=== PATIENT | female | born 1965 | race Caucasian/White ===

== ENCOUNTER 2018-05-30 14:40 | Emergency (ER) | payer OTHER, SELFPAY ==
[2018-05-30 14:51] VITALS: PULSE 72; RESP 18; TEMP 36.7; O2SAT 95; BMI 45.8
--- NOTE | 2018-05-30 16:15 | ED_ITS ---
HPI - Wound/Laceration General Chief Complaint: Wound/Laceration Stated Complaint: laceration to thumb left hand Time Seen by Provider: 05/30/18 15:53 Source: patient Mode of arrival: ambulatory Limitations: no limitations History of Present Illness HPI narrative: 52-year-old female comes to the emergency department after accidentally cutting her thumb with an Exacto knife. She was trying to pull apart a small would drawer. Patient states it popped off and cut her thumb. She tried to get the bleeding to stop but it gaps every time she flexes her thumb. She states her tetanus is up-to-date. No numbness, no tingling no weakness. She has no other injuries. She denies any other issues at this time. Related Data Home Medications Medication Instructions Recorded Confirmed albiglutide [Tanzeum] 50 mg SC QWEEK #0 12/31/15 atorvastatin [Lipitor] 20 mg PO BEDTIME #30 tab 12/31/15 05/30/18 ferrous fumarate #0 12/31/15 insulin glargine [Lantus Solostar 0 unit SQ HS #60 12/31/15 05/30/18 U-100 Insulin] levothyroxine [Synthroid] 125 mcg PO DAILY #0 tab 12/31/15 05/30/18 metformin [Glucophage] 500 mg PO BIDCC #0 tab 12/31/15 05/30/18 omeprazole-sodium bicarbonate 1 cap PO EVERY OTHER DAY #0 12/31/15 [Zegerid OTC] sertraline [Zoloft] 100 mg PO QDAY #2 12/31/15 [CRANBERRY VITAMIN] #0 02/12/16 lutein #0 02/12/16 albuterol sulfate [Ventolin HFA] 1 puff INHALATION Q4-6H PRN 05/30/18 05/30/18 dulaglutide [Trulicity] 1.5 mg SUBCUT Q2W 05/30/18 05/30/18 metoprolol tartrate 25 mg PO BID 05/30/18 05/30/18 Previous Rx's Medication Instructions Recorded acetaminophen-codeine 1 tab PO Q4HP PRN #20 tab 02/12/16 Allergies Allergy/AdvReac Type Severity Reaction Status Date / Time adhesive tape [ADHESIVE TAPE] Allergy Unknown BLISTERS Verified 05/30/18 14:55 AND PEELING simvastatin [SIMVASTATIN] AdvReac Unknown MUSCLE Verified 05/30/18 14:55 CRAMPS Review of Systems Review of Systems ROS Unobtainable: All systems reviewed & are unremarkable except as noted in HPI and below Musculoskeletal Denies numbness, Denies tingling and Reports other (laceration thumb. ) Integumentary/Breasts Denies unusual bruising and Reports wounds (laceration) Neurologic Denies numbness and Denies tingling PFSH Social History Smoking Status: Former smoker Exam Narrative Exam Narrative: GENERAL: Alert and oriented x three, obese, well-appearing well nourished female in mild distress. HEENT: Head normocephalic, atraumatic, EOMI, pupils reactive, face symmetric, moist mucous membranes EXTREMITIES: Normal range of motion, no clubbing or edema. Patient has cap refill less than 2 sec in the thumb, full range of motion, no weakness, patient has 2+ radial pulse. She has no other injuries to the other digits or hand. Patient does have 2 lacerations 1 is deeper no tendon or ligament involvement on the ulnar side of the thumb between the proximal and middle interphalangeal joints. It is into the subcutaneous. It gaps with flexion. There is a very small superficial laceration parallel and divided by about a cm distance. Neurovascularly intact NEUROLOGICAL: Cranial nerves II through XII grossly intact. Moving all extremities SKIN: Warm, dry, no petechiae, no rashes or lesions. Initial Vital Signs Initial Vital Signs: Vital Signs Temperature 98.0 F 05/30/18 14:51 Pulse Rate 72 05/30/18 14:51 Respiratory Rate 18 05/30/18 14:51 Pulse Oximetry 95 05/30/18 14:51 Procedures Laceration Repair Laceration 1: Side (If applicable): left (thumb) Size (cm): 1.1 Description: linear Depth: simple, single layer Local Anesthetic: lidocaine 1% Amount of anesthesia used (mL): 0.5 Pre-repair: wound explored, irrigated extensively and deep structures intact Skin layer closed with: nylon Size (cm): 4-0 Number of sutures: 1 Technique: simple, interrupted Course Vital Signs - 8 hr 05/30/18 14:51 05/30/18 16:23 Temperature 98.0 F Pulse Rate 72 71 Respiratory Rate 18 19 Blood Pressure [Left Arm] 119/70 Pulse Oximetry 95 93 MDM - Wound/Laceration MDM Narrative Medical decision making narrative: Patient I discuss she can have a splint to remind her not to flex the thumb although she does not seem to gape when flexing. Patient defers at this time she feels she can remember know if not 2. She denies for wrist splint because she wants to play basketball we discussed that a wrist splint is not going to protect her thumb, she should play basketball with that hand until the sutures out. That she can have a splint on her thumb if she wants it. Discharge Plan Departure Patient Disposition: Home Clinical Impression: Laceration of left thumb Discharge Date/Time: 05/30/18 16:39 Interventions: ED Discharge Assessment Last Done: 05/30/18 16:37 Instructions: DI for Laceration Repair -- Finger Activity Restrictions/Additional Instructions: Wound Care: Keep wound(s) clean and dry. Wash daily with soap and water only. Do not use over the counter products (alcohol or peroxide)on the wounds unless instructed by a physician. If wound condition worsens (increased/expanding redness, developing fluid blisters, or worsening pain), either contact your doctor for an urgent re- assessment , or return to the Emergency Department. Return to the Emergency Department for any new or worsening symptoms. Return to the ED, urgent care, or vist a primary care doctor for removal or suture or dali in 7-10 days. Return if fever greater than 100.4 Fahrenheit, increased swelling, increasing pain or worsening symptoms such as increased discharge or spreading redness, decreased sensation, weakness, pallor or blue discolaration. Use warm compresses 3 times daily for 20 minutes to the affected area. Prescriptions: No Action atorvastatin [Lipitor] 20 MG tablet 20 mg PO BEDTIME Qty: 30 RF: 0 ferrous fumarate 324 MG tablet Qty: 0 RF: 0 levothyroxine [Synthroid] 125 MCG tablet 125 mcg PO DAILY Qty: 0 RF: 0 insulin glargine [Lantus Solostar U-100 Insulin] 100 UNIT/1 ML insulin pen SQ HS Qty: 60 RF: 0 metformin [Glucophage] 500 MG tablet 500 mg PO BIDCC Qty: 0 RF: 0 sertraline [Zoloft] 100 MG tablet 100 mg PO QDAY Qty: 2 RF: 0 albiglutide [Tanzeum] 50 MG/0.5 ML pen injector 50 mg SC QWEEK Qty: 0 RF: 0 omeprazole-sodium bicarbonate [Zegerid OTC] 20 MG capsule 1 cap PO EVERY OTHER DAY Qty: 0 RF: 0 [CRANBERRY VITAMIN] Qty: 0 RF: 0 lutein 10 MG tablet Qty: 0 RF: 0 acetaminophen-codeine 30 MG/300 MG tablet 1 tab PO Q4HP PRNQty: 20 RF: 0 albuterol sulfate [Ventolin HFA] 90 mcg/actuation Hfa Aerosol Inhaler 1 puff INHALATION Q4-6H PRN (Reason: Shortness Of Breath) RF: 0 metoprolol tartrate 25 mg Tablet 25 mg PO BID RF: 0 dulaglutide [Trulicity] 1.5 mg/0.5 mL Pen Injector 1.5 mg SUBCUT Q2W RF: 0 Referrals: Samreen Ray DO [Primary Care Provider] -
[2018-05-30 16:23] VITALS: BP 119/70; PULSE 71; RESP 19; O2SAT 93
== END 2018-05-30 16:39 | disposition home or self-care (01) ==
PROVIDERS: Emergency Provider Emergency Medicine; Family Provider Family Medicine; PCP Family Medicine
DX: S61.012A Laceration without foreign body of left thumb without damage to nail, initial encounter (principal); W26.8XXA Contact with other sharp object(s), not elsewhere classified, initial encounter
CPT/HCPCS: 12001; 99282; 99283

== ENCOUNTER → 2019-06-19 12:10 | Outpatient (CLI) | payer OTHER, SELFPAY ==
--- NOTE | 2019-06-22 04:39 | DI.NM.S_ITS ---
DATE OF SERVICE: PROCEDURE: Pharmacological perfusion study for patient. DATE OF STUDY: 06/19/2019. INDICATIONS: Indication chest pain with underlying diabetes mellitus, hypertension, hyperlipidemia. RADIOPHARMACEUTICAL: 25.9 millicurie technetium-99m Myoview intravenous was injected at stress and 25.3 millicurie technetium-99m Myoview intravenous was injected at rest. CARDIAC STRESS: The patient underwent intravenous Lexiscan perfusion study under the supervision of an attending staff using standard intravenous Lexiscan protocol. Baseline EKG revealed sinus rhythm with left bundle branch block. Stress EKG did not reveal any convincing inducible ischemic changes. The patient remained hemodynamically stable. No significant symptoms were reported. RAW DATA: There is increased subdiaphragmatic activity. GATED STUDY: Resting LV ejection fraction 81%, stress LV ejection fraction 79%. Resting end-diastolic volume 107 mL. No transient ischemic dilatation. TID ratio 0.93, which is within normal limits. Lung heart ratio 0.45, which is upper limit of normal. MYOCARDIAL PERFUSION SCAN: Resting supine images reveal small size mildly decreased perfusion of inferior apex which got resolved during stress supine as well as stress prone images. No convincing ischemia or infarction pattern. CONCLUSION: I will call this study a normal myocardial perfusion study without any convincing ischemia or infarction pattern during stress supine and stress prone images. The patient has underlying left bundle branch block. Overall this is a low risk myocardial perfusion scan. Deanna Molina - ELIF/jose/weston doc#: [id number]/job#: [id number] dd: 06/21/2019 17:12:00 dt: 06/22/2019 04:25:00 DICTATING /COPIES TO: Shandra Pagan MD COPIES MNE: LIANA;
== END ==
PROVIDERS: Family Provider Family Medicine; PCP Family Medicine; Referring Provider Family Medicine; Visit Provider Family Medicine
DX: R07.9 Chest pain, unspecified (principal); I44.7 Left bundle-branch block, unspecified; E78.5 Hyperlipidemia, unspecified; I10 Essential (primary) hypertension; E11.65 Type 2 diabetes mellitus with hyperglycemia
CPT/HCPCS: 78452; 93017; A9502; J2785

== ENCOUNTER → 2019-10-26 12:33 | Outpatient (CLI) | payer OTHER, SELFPAY ==
--- NOTE | 2019-10-26 14:51 | DIET.PN ---
Diabetes Intake: Initial Assessment Assess: Ms. Molina is a 54 YOF referred for type 2 diabetes. She has a long standing hx with poor control. She reports having some education several years ago, but she does not feel she had a good understanding of how to manage her eating and medication. She admits she has not followed her medication regimen until recently. She has been unable to exercise due to cardiac restrictions, and has not been following any dietary patterns or restrictions. She reports eating many processed foods including spaghettios, corndogs, chips, and fast food several times per week and has a high carb starbucks coffee drinks almost daily. She has been monitoring her BG 1x/wk. Labs: Per pt report: A1c 9.3 Meds: humulin 70/30: 68 u a.m./p.m. metf: 500 mg BID trulicity 1x/wk Diet: per 24 hr recall: high in processed or fast foods. Wt: 315# Ht: 67? BMI: 49.3 DX: Altered nutrition related laboratory values related to impaired glucose metabolism, lack of previous exposure to nutrition information as evidenced by pt report, diagnosis of diabetes, previous diet high in refined carbohydrates. Intervention: 1. Completed intake assessment. Discussed barriers to care. 2. Discussed pathophysiology of diabetes. Reviewed A1c and its correlation to blood glucose numbers. Discussed recommended BG ranges. 3. Discussed importance of self-monitoring, how often, and when to check. Provided demonstration on use of glucometer. 4. Reviewed hyper/hypoglycemia and treatment. 5. Reviewed safe disposal of equipment (strip/lancets/insulin needles). 6. Created SMART goals for pt self-care and success. 7. Discussed program curriculum outline and class needs based on individual goals. SMART Goals: 1. Pt would like to lose 15# (5% BW) in the next 3 mo through changes in dietary patterns, learning carb counting, and beginning an exercise program 3x/wk. 2. Pt agrees to monitor FBG and alternating 2 hr PP glucose and keep a food diary to address pattern management. Monitor/Evaluate: Anticipate good compliance. Pt will attend full DSME program. Basic Nutrition class scheduled for October,.
== END ==
PROVIDERS: Family Provider Family Medicine; PCP Family Medicine; Referring Provider Family Medicine; Visit Provider Family Medicine
DX: E11.65 Type 2 diabetes mellitus with hyperglycemia (principal); E66.9 Obesity, unspecified; Z68.42 Body mass index [BMI] 45.0-49.9, adult; Z71.3 Dietary counseling and surveillance; Z79.4 Long term (current) use of insulin; Z79.84 Long term (current) use of oral hypoglycemic drugs
CPT/HCPCS: G0108

== ENCOUNTER → 2019-10-31 09:25 | Outpatient (CLI) | payer OTHER, SELFPAY ==
--- NOTE | 2019-10-31 11:49 | DIET.PN ---
Diabetes: Healthy Eating 1 Intervention: ? Discussed pathophysiology of diabetes and impact of nutrition/diet on blood sugar control.? Discussed fed versus non-fed state.?? ? Reviewed importance of Balance, Variety, and Moderation. ? Discussed the effect of carbohydrates/protein/fat on blood sugar control.? ? Stressed importance of consistent carbohydrate intake at each meal and provided instructions for recommended servings/portions of carbohydrates/protein per meal. Provided educational material. ? Reviewed carbohydrate counting and measuring carbohydrate content via serving sizes and reading nutrition labels.? Provided handouts.?? ? Discussed the difference between simple versus complex carbohydrates and the effect of fiber on blood sugar control.? Discussed various methods to increase fiber content in diet. ? Discussed the plate method for creating more carbohydrate conscious balanced meals. ? Stressed importance of meal timing and not going >4-5 hours between meals. Encouraged adding protein to evening snack to support glucose control overnight. ? Discussed importance of making dietary habits part of lifestyle change.
== END ==
PROVIDERS: Family Provider Family Medicine; PCP Family Medicine; Referring Provider Family Medicine; Visit Provider Family Medicine
DX: E11.9 Type 2 diabetes mellitus without complications (principal); Z71.3 Dietary counseling and surveillance
CPT/HCPCS: G0109

== ENCOUNTER → 2019-11-01 12:40 | Outpatient (CLI) | payer OTHER, SELFPAY ==
--- NOTE | 2019-11-01 | DI.ECHO.S_ITS ---
[facility]---------+ [facility] +---------+ : : [address] : [place] : : : : [id number] : : : : Phone: [phone]+ Echocardiogram Report + + :Name: CRISTY SEGAL Study Date: 11/01/2019 Height: 67 in : :[facility] Weight: 299 lb : : Gender: Female BSA: 2.4 m2 : :: 1965 Age: 54 yrs BP: 162/78 mmHg: :Reason For Study: DYSPNEA : :Ordering Physician: BARRIE, : :THOMAS Connelly Performed By: Idalia Hilton : :Referring: THOMAS SOOD : + + Interpretation Summary The left ventricle is normal in size. Left ventricular wall thickness is mild-moderately increased. The left ventricle is mildly hyperdynamic. Left ventricular ejection fraction is estimated to be 70 +/- 5%. Doppler profile in the LV cavity and near the apex has dagger shaped, suggestive of some gradient however based on velocity, no significant intracavitary obstruction seen. The right ventricle is normal in size and function. No significant valvular pathology seen. Procedure: A two-dimensional transthoracic echocardiogram with color flow and Doppler was performed. The study quality was technically difficult. Comparison is made with the echocardiogram of 08/16/2018. The patient was in normal sinus rhythm during the exam. The heart rate ranged between 60-70 bpm during the study. The patient had occasional PVCs during the exam. The patient had a bundle branch block rhythm during the exam. Left Ventricle: The left ventricle is normal in size. Left ventricular wall thickness is mild-moderately increased. Doppler profile in the LV cavity near the apex has dagger shaped suggestive of some gradient however based on velocity, no significant intracavitary obstruction seen. There is no thrombus. Left ventricular ejection fraction is estimated to be 70 +/- 5%. The left ventricle is mildly hyperdynamic. There are no focal wall motion abnormalities. Diastolic parameters suggest a relaxation abnormality of the left ventricle, consistent with probable normal filling pressures. Right Ventricle: The right ventricle is normal in size and function. Atria: The left atrium is mildly dilated. Right atrial size is normal. There is no Doppler evidence for an interatrial shunt. Mitral Valve: There is mild mitral annular calcification. There is trace mitral regurgitation. Aortic Valve: The aortic valve is trileaflet. The aortic valve opens well. The aortic valve is mildly calcified. There is discrete nodular thickening of the non- coronary cusp. There is no aortic valve stenosis. No aortic regurgitation is present. Tricuspid Valve: The tricuspid valve is not well visualized, but is grossly normal. There is a trace or physiologic amount of tricuspid regurgitation. Pulmonary artery pressures cannot be estimated because of the lack of a measurable TR jet velocity. Pulmonic Valve: The pulmonic valve is not well seen, but is grossly normal. There is no pulmonic valvular regurgitation. Great Vessels: The aortic root is normal size. The ascending aorta is at the upper limits of normal in size. The inferior vena cava was not visualized. Pericardium/ Pleura There is no pericardial effusion. There is an anterior echo-free space consistent with a fat pad. There is no pleural effusion. MMode/2D Measurements & Calculations LVIDd: 4.5 cm LVOT diam: 2.2 cm LVIDs: 2.6 cm Ao root diam: 2.8 cm FS: 42.9 % asc Aorta Diam: 3.7 cm EPSS: 0.65 cm Ao Arch Diam (Prox Trans): 3.1 cm IVSd: 1.4 cm LVPWd: 1.3 cm LV bro. diameter/BSA (cm/m^2): 1.9 LV sys. diameter/BSA (cm/m^2): 1.1 LA A2 area: 22.0 cm2 RA long axis: 5.1 cm LA A4 area: 18.8 cm2 RA area: 16.0 cm2 LA length (vol): 5.3 cm RA vol: 43.1 ml LA vol: 66.1 ml RA : 18.0 ml/m2 LA vol index: 27.6 ml/m2 RVD1 (basal): 3.9 cm TAPSE: 1.9 cm Doppler Measurements & Calculations Ao V2 max: 182.2 cm/sec LVOT Max Kirk: 143.4 cm/sec Ao V2 mean: 122.2 cm/sec LV V1 max P.2 mmHg Ao max P.3 mmHg LV V1 VTI: 25.1 cm Ao mean P.9 mmHg PEPE(I,D): 2.9 cm2 Ao V2 VTI: 32.8 cm PEPE(V,D): 3.0 cm2 sev ratio: 0.77 PEPE indexed to BSA (cm^2/m^2): 1.2 MV E max kirk: 89.8 cm/sec PA V2 max: 106.4 cm/sec MV A max kirk: 103.1 cm/sec PA V2 mean: 73.0 cm/sec MV E/A: 0.87 PA mean P.5 mmHg Med Peak E' Kirk: 9.3 cm/sec E/E' med: 9.6 Lat Peak E' Kirk: 7.7 cm/sec E/E' lat: 11.7 E/e' average: 10.6 MV dec time: 0.31 sec SV(LVOT): 95.3 ml Reading Physician:02:28 PM
--- NOTE | 2019-11-01 | DI.CT.S_ITS ---
PROCEDURE: CT CHEST W CON INDICATIONS: EXTERTIONAL DYSPNEA,Other disorders of lung TECHNIQUE: After the administration of intravenous contrast, 5 mm thick sections acquired from the pulmonary apices to the posterior costophrenic angles. 1 mm axial lung, 5 mm thick coronal and sagittal reformats and 7 mm axial MIP were acquired. For radiation dose reduction, the following was used: automated exposure control, adjustment of mA and/or kV according to patient size. COMPARISON: [facility], CT, ABDOMEN/PELVIS WITH CONTRAST, 03/26/2016, 14:30. FINDINGS: Image quality: Excellent. Lungs and pleura: No acute air space opacities. Right middle lobe pulmonary nodule measuring 5 mm (3/144). Right middle lobe juxtapleural pulmonary nodule measuring 6 mm, (3/152), previously 5 mm on 03/26/2016. No pleural effusions or pneumothorax. Central and peripheral airways are patent and normal in caliber. Mediastinum: Heart size is normal. No pericardial effusion. No mediastinal or hilar adenopathy by size criteria. Thoracic aorta and central pulmonary arteries are normal in size. No central pulmonary embolism. Esophagus is normal in caliber. No hiatal hernia. Bones and chest wall: No suspicious bony lesions. No vertebral body compression fractures. No axillary or supraclavicular adenopathy by size criteria. Thyroid gland is unremarkable. Visualized abdomen: Hepatic steatosis. IMPRESSION: 1. No acute airspace opacity. 2. No pleural effusion. 3. Small pulmonary nodules in the right middle lobe, largest 6 mm and appears similar in size to 2016 CT suggesting a benign etiology. -Consider a followup low dose chest CT in 12 months. 4. Hepatic steatosis. Dictated by: Ravi Heaton M.D. on 11/01/2019 at 13:59 Approved by: Ravi Heaton M.D. on 11/01/2019 at 14:07
== END ==
PROVIDERS: Family Provider Family Medicine; PCP Family Medicine; Referring Provider Family Medicine; Visit Provider Family Medicine
DX: J98.4 Other disorders of lung (principal); R06.09 Other forms of dyspnea; R91.8 Other nonspecific abnormal finding of lung field; K76.0 Fatty (change of) liver, not elsewhere classified
CPT/HCPCS: 71260; 93306

== ENCOUNTER → 2019-11-09 09:47 | Outpatient (CLI) | payer OTHER, SELFPAY ==
--- NOTE | 2019-11-09 12:21 | DIET.PN ---
Diabetes: Healthy Eating 2 Intervention: Fats effects on glucose, weight, heart disease, cholesterol Sat Vs Unsat Protein- animal and plant based options Low, med, high fat meats Sugar substitutes Sodium Health claims Grocery shopping guidelines Eating away from home Alcohol Sick day guidelines Ketone Testing
== END ==
PROVIDERS: Family Provider Family Medicine; PCP Family Medicine; Referring Provider Family Medicine; Visit Provider Family Medicine
DX: E11.9 Type 2 diabetes mellitus without complications (principal); Z71.3 Dietary counseling and surveillance
CPT/HCPCS: G0109

== ENCOUNTER → 2020-01-24 10:00 | Outpatient (CLI) | payer OTHER, SELFPAY ==
--- NOTE | 2020-01-24 11:24 | DIET.PN ---
DIABETES Nutrition Initial Assessment:? ASSESS:?? Ms Molina is a 54 yof?referred for type 2 diabetes seen as part of DSME program. She reports she has been really stressed lately with the care of her family and all that is going on. She has managed to eat less carbs at each meal by portion control and is working to increase vegetables with salad or frozen. She is purchasing pre-cut fruit to snack on between meals. She continues to eat treats at night, but has been trying different options including keto friendly icecream and smaller portioned packaged items. She is working on limiting processed and fast foods by cooking larger portions to have leftovers during the week. ??? LABS: Per pt report:? A1c: 9.3 Fasting or before evening meal: 190-250 ? MEDS:?? no change ? DIET: Per 24-hour recall:? Eating Out: 2-3x/wk Changes in Appetite: trying not to overeat due to stress Nutrition Supplements: Vit B Complex, Vit D, Vit C, Iron ? Weight: 304 lb Height: 67? BMI: ? 47.6 ? Exercise:? Not consistent (working to increase to 3x/wk) NUTRITION DX 1. Altered Nutrition related labs related to impaired glucose metabolism, lack of previous exposure to accurate nutrition information as evidenced by pt report, dx of diabetes, previous diet high in refined carbohydrates.? INTERVENTION(s): 1. Reviewed pathophysiology of diabetes and impact of nutrition/diet on blood sugar control.? Discussed fed versus non-fed state.?? 2. Discussed the effect of carbohydrates/protein/fat on blood sugar control.? Stressed importance of consistent carbohydrate intake at each meal and provided instructions for recommended servings/portions of carbohydrates/protein per meal. Provided pt with educational material. 3. Reviewed carbohydrate counting and measuring carbohydrate content via serving sizes and reading nutrition labels.? Provided handouts.?? 4. Discussed the difference between simple versus complex carbohydrates and the effect of fiber on blood sugar control.? Discussed various methods to increase fiber content in diet. 5. Stressed importance of meal timing and not going >4-5 hours between meals. Encouraged adding protein to evening snack to support glucose control overnight. Patient agreeable. 6. Discussed healthy weight loss goals of 1-2lbs per week through diet and exercise.? Pt agreeable to walking at least 20 minutes 3x/wk. 7. Recommend monitoring fasting and alternating 2 hr PP mealtime glucose. MONITOR/EVALUATE: Anticipate good compliance.? f/u scheduled for 2 months.
[2020-01-24 11:25] VITALS: BMI 47.2
== END ==
PROVIDERS: Family Provider Family Medicine; PCP Family Medicine; Referring Provider Family Medicine; Visit Provider Family Medicine
DX: E11.9 Type 2 diabetes mellitus without complications (principal); E66.9 Obesity, unspecified; Z68.42 Body mass index [BMI] 45.0-49.9, adult; Z71.3 Dietary counseling and surveillance
CPT/HCPCS: G0109

== ENCOUNTER → 2020-02-15 14:06 | Outpatient (CLI) | payer OTHER, SELFPAY ==
--- NOTE | 2020-02-15 15:52 | DIET.PN ---
Diabetes Exercise/Lifestyle change: 1. Importance of exercise 2. FITT (frequency, intensity, time, type) 3. Strength training tips and guidelines 4. Glucose monitoring/ranges before and after a. Carbohydrate needs based on glucose ranges and duration/intensity of exercise b. Rule of 15 5. Proper foot attire 6. Developing strategies for behavior change 7. SMART Goal Setting 8. Home exercise routine demonstration (as a class)
== END ==
PROVIDERS: Family Provider Family Medicine; PCP Family Medicine; Referring Provider Family Medicine; Visit Provider Family Medicine
DX: E11.9 Type 2 diabetes mellitus without complications (principal); Z71.3 Dietary counseling and surveillance
CPT/HCPCS: G0109

== ENCOUNTER → 2020-04-02 14:23 | Outpatient (CLI) | payer OTHER, SELFPAY ==
--- NOTE | 2020-04-02 15:47 | DIET.PN ---
Diabetes Physiology: Intervention 1. Diabetes physiology 2. Detecting and treatment of acute and chronic complications 3. Diagnosis of and difference in types of diabetes 4. Self-monitoring and pattern management a .Demonstrate glucometer and control testing b. Explain BG results and action to take when out of range. 5. Foot , eye, dental care 6. Medications a. Oral medication classification b. Injectable c. Insulin i. Injection protocol ii. Other delivery methods
== END ==
PROVIDERS: Family Provider Family Medicine; PCP Family Medicine; Referring Provider Family Medicine; Visit Provider Family Medicine
DX: E11.9 Type 2 diabetes mellitus without complications (principal); Z71.3 Dietary counseling and surveillance
CPT/HCPCS: G0109

== ENCOUNTER → 2021-03-04 13:47 | Outpatient (CLI) | payer OTHER, SELFPAY ==
--- NOTE | 2021-03-04 | DI.CT.S_ITS ---
PROCEDURE: CT LUNG LOW DOSE SCREENING INDICATIONS: other disorders of the lung TECHNIQUE: Noncontrast 2.0-2.5 mm thick sections acquired from the pulmonary apices to the posterior costophrenic angles. 7 mm thick axial MIP, and 5 mm coronal and sagittal reformats were then acquired. A low radiation dose technique was utilized. COMPARISON: Merged With [facility], CT, ABDOMEN/PELVIS WITH CONTRAST, 03/26/2016, 14:30. Merged With [facility], CT, CT CHEST W CON, 11/01/2019, 12:59. FINDINGS: Image quality: Diagnostic, given the low radiation dose technique. Lungs and pleura: No acute airspace disease. A suspicious pulmonary mass. No septal thickening or nodularity. No pneumothorax or pleural effusion. Stable 5 mm and 6 mm right middle lobe pulmonary nodules. No new pulmonary nodules identified. Mediastinum: Heart size is normal. Mild scattered atherosclerotic calcifications of the coronary arteries are noted. No pericardial effusion. No mediastinal adenopathy by size criteria. Thoracic aorta and central pulmonary arteries are normal in size. Esophagus is normal in caliber. No hiatal hernia. Bones and chest wall: No suspicious bony lesions. No vertebral body compression fractures. No axillary or supraclavicular adenopathy by size criteria. Thyroid gland is unremarkable. Abdomen: Visualized upper abdomen solid organs and bowel loops appear normal in the absence of contrast. IMPRESSION: 1. Stable 5 mm and 6 mm right middle lobe pulmonary nodules. No new pulmonary nodule seen. These have been relatively stable since 2015. Findings are compatible with benign nodules. No further follow up imaging recommended unless patient meets criteria for lung cancer screening. If so, a follow-up screening chest CT in 12 months is recommended using low-dose protocol. 2. No acute cardiopulmonary abnormalities. 3. Atherosclerotic vascular disease. LUNG-RADS 1 no nodules or definitely benign nodules continue annual screening low-dose chest CT in 12 months if patient meets screening criteria. Dictated by: Joni Acosta M.D. on 03/04/2021 at 17:06 Approved by: Joni Acosta M.D. on 03/04/2021 at 17:29
== END ==
PROVIDERS: Family Provider Family Medicine; PCP Family Medicine; Referring Provider Family Medicine; Visit Provider Family Medicine
DX: J98.4 Other disorders of lung (principal); R91.8 Other nonspecific abnormal finding of lung field; I25.10 Atherosclerotic heart disease of native coronary artery without angina pectoris
CPT/HCPCS: 71250

== ENCOUNTER → 2023-02-11 08:15 | Outpatient (CLI) | payer OTHER, SELFPAY | PROVIDERS: Family Provider Family Medicine; PCP Physician Assistant; Referring Provider Physician Assistant; Visit Provider Physician Assistant | DX: J45.41 Moderate persistent asthma with (acute) exacerbation (principal); Z86.16 Personal history of COVID-19; Z87.891 Personal history of nicotine dependence | CPT/HCPCS: 94060; 94729 ==

== ENCOUNTER → 2023-10-13 12:59 | Outpatient (CLI) | payer OTHER, SELFPAY ==
--- NOTE | 2023-10-13 13:00 | DI.CT.S_ITS ---
PROCEDURE: CT ABDOMEN W CON INDICATIONS: ABDOMINAL PAIN TECHNIQUE: After the administration of intravenous contrast, 5 mm thick sections acquired from the diaphragms to the iliac crests. 5 mm thick coronal and sagittal reformats were acquired. For radiation dose reduction, the following was used: automated exposure control, adjustment of mA and/or kV according to patient size. COMPARISON: [facility], CT, ABDOMEN/PELVIS WITH CONTRAST, 03/26/2016, 14:30. FINDINGS: Image quality: Diagnostic. Lower Chest: No significant findings. ABDOMEN: Liver: No solid mass. Gallbladder: Cholelithiasis without wall thickening or adjacent fat stranding to suggest acute cholecystitis. Biliary ducts: No biliary dilation. Pancreas: No ductal dilation. Spleen: Splenomegaly, measuring 15.6 x 5.3 x 12.7 centimeter (volume of 600 milliliter) Adrenal Glands: New 1.7 centimeter right adrenal nodule (series 3, image 24). Kidneys and Ureters: No hydronephrosis. No solid mass. No complex renal cystic lesion which requires follow up. Stomach and Bowel: Normal colonic caliber, without significant wall thickening. Peritoneum: No abnormal intraperitoneal fluid. No free air. Ventral Wall: Wide-mouth ventral hernia containing fat. Abdominal Nodes: No retroperitoneal or mesenteric adenopathy by size criteria. Vessels: Aorta and inferior vena cava are normal in size. Bones: No aggressive osseous abnormality. IMPRESSION: Splenomegaly, commonly seen in the setting of liver disease. Lymphoma not excluded. Cholelithiasis without wall thickening or adjacent fat stranding to suggest acute cholecystitis. New 1.7 centimeter right adrenal nodule. Recommend dedicated CT or MRI for characterization (adrenal mass protocol). Dictated by: Waqas Haro M.D. on 10/13/2023 at 17:57 Approved by: Waqas Haro M.D. on 10/13/2023 at 18:03
== END ==
PROVIDERS: Family Provider Family Medicine; PCP Physician Assistant; Referring Provider Physician Assistant; Visit Provider Physician Assistant
DX: E27.9 Disorder of adrenal gland, unspecified (principal); K80.20 Calculus of gallbladder without cholecystitis without obstruction; K43.9 Ventral hernia without obstruction or gangrene; R10.13 Epigastric pain; R16.1 Splenomegaly, not elsewhere classified
CPT/HCPCS: 36415; 74160; 82565; Q9967

== ENCOUNTER → 2023-10-13 13:00 | Outpatient (CLI) | payer OTHER, SELFPAY ==
[2023-10-13 13:29] LABS: Estimated Glomerular Filt Rate 56 mL/min (>60)
== END ==
PROVIDERS: Family Provider Family Medicine; PCP Physician Assistant; Referring Provider Radiology Diagnostic Radiology; Visit Provider Radiology Diagnostic Radiology
DX: R10.13 Epigastric pain (principal)
CPT/HCPCS: 36415; 82565

== ENCOUNTER → 2023-11-11 13:02 | Outpatient (CLI) | payer OTHER, SELFPAY ==
--- NOTE | 2023-11-11 13:03 | DI.CT.S_ITS ---
PROCEDURE: CT ABDOMEN ADRENAL PROTOCOL INDICATIONS: Adrenal Adenoma TECHNIQUE: Noncontrast 3 mm thick sections acquired from the diaphragms to the iliac crests. After the administration of intravenous contrast, 3 mm thick venous-phase and 15-minute delayed images acquired from the diaphragms to the iliac crests. For radiation dose reduction, the following was used: automated exposure control, adjustment of mA and/or kV according to patient size. COMPARISON: Chest CT 03/04/2021. FINDINGS: Image quality: Excellent. Lower chest: Stable pulmonary macro nodules in the right middle lobe. ABDOMEN: Adrenal Glands: 1.7 cm right adrenal nodule with attenuation consistent with a benign adrenal adenoma (6 Hounsfield unit). Liver: No solid mass. Gallbladder: Cholelithiasis without wall thickening or adjacent fat stranding to suggest acute cholecystitis. Biliary ducts: No biliary dilation. Pancreas: No ductal dilation. Spleen: Splenomegaly, measuring 14.8 x 7.7 x 12.8 cm Kidneys and Ureters: No hydronephrosis. No solid mass. No complex renal cystic lesion which requires follow up. Stomach and Bowel: Normal colonic caliber, without significant wall thickening. Colonic diverticulosis without evidence of diverticulitis. Peritoneum: No abnormal intraperitoneal fluid. No free air. Ventral Wall: No hernia. Abdominal Nodes: No retroperitoneal or mesenteric adenopathy by size criteria. Vessels: Aorta and inferior vena cava are normal in size. Bones: No aggressive osseous abnormality. IMPRESSION: Benign right adrenal adenoma based on Hounsfield units criteria (6 Hounsfield unit). Splenomegaly. Findings are typically caused by liver disease but lymphoproliferative disorder not excluded. Cholelithiasis without wall thickening or adjacent fat stranding to suggest acute cholecystitis. Dictated by: Waqas Haro M.D. on 11/11/2023 at 15:12 Approved by: Waqas Haro M.D. on 11/11/2023 at 15:16
== END ==
PROVIDERS: Family Provider Family Medicine; PCP Physician Assistant; Referring Provider Physician Assistant; Visit Provider Physician Assistant
DX: D35.01 Benign neoplasm of right adrenal gland (principal); R16.1 Splenomegaly, not elsewhere classified; K80.20 Calculus of gallbladder without cholecystitis without obstruction
CPT/HCPCS: 74170; Q9967

== ENCOUNTER → 2023-12-09 12:55 | Outpatient (CLI) | payer OTHER, SELFPAY | PROVIDERS: Family Provider Family Medicine; PCP Physician Assistant; Referring Provider Internal Medicine; Visit Provider Internal Medicine | DX: J45.30 Mild persistent asthma, uncomplicated (principal) | CPT/HCPCS: 94060; 94729 ==

== ENCOUNTER 2024-01-10 09:23 | Inpatient (IN) | payer OTHER, SELFPAY ==
[2024-01-10] VITALS (14 sets, daily range): BP systolic 142–204; BP diastolic 73–100; PULSE 66–106; RESP 13–22; TEMP 36.3–36.9; O2SAT 93–99; BMI 42.3
--- NOTE | 2024-01-10 09:37 | ED.ABDPAIN ---
HPI - Abdominal Pain General Chief Complaint: Abdominal Pain Stated Complaint: ABD Pain vomitting Time Seen by Provider: 01/10/24 09:37 Source: patient, RN notes reviewed and old records reviewed Mode of arrival: Wheelchair Limitations: no limitations History of Present Illness HPI narrative: 58-year-old female with history of diabetes on insulin, hypertension, dyslipidemia on aspirin daily who presents with complaint of epigastric pain/right upper quadrant pain. Patient states she has had episodes on and off in the past she is seen her physician been told she has a sluggish gallbladder and has had CT imaging in the past which shows cholelithiasis. Patient states nothing seems to bring on the episode they typically last about 24 hours and then resolved. She had an episode last week and then woke up this morning at 1:30 a.m. and has had persistent pain since then. She states it does not radiate to any new locations. She states nothing seems to bring it on specifically. Nothing seems to make it better. She has not had any fevers she has had nausea and vomiting this morning. She denies any diarrhea or constipation. Denies any urinary symptoms. Patient states she is on insulin for diabetes, medication for hypertension and dyslipidemia. States allergies to adhesive tape and statins. States she has had orthopedic surgeries but no prior cardiac, pulmonary or abdominal surgeries. No tobacco, no regular alcohol, no recreational drugs. She is accompanied by her sister. Related Data Home Medications Medication Instructions Recorded Confirmed albiglutide 50 mg/0.5 mL 50 mg SC QWEEK ##0 12/31/15 subcutaneous pen injector (Tanzeum) atorvastatin 20 mg tablet (Lipitor) 20 mg PO BEDTIME #30 tabs 12/31/15 05/30/18 ferrous fumarate 324 mg (106 mg ##0 12/31/15 iron) tablet insulin glargine 100 unit/mL (3 0 unit SQ HS ##60 12/31/15 05/30/18 mL) subcutaneous pen (Lantus Solostar U-100 Insulin) levothyroxine 125 mcg tablet 125 mcg PO DAILY #0 tabs 12/31/15 01/10/24 (Synthroid) metformin 500 mg tablet 500 mg PO BIDCC #0 tabs 12/31/15 05/30/18 (Glucophage) omeprazole 20 mg-sodium 1 cap PO EVERY OTHER DAY ##0 12/31/15 01/10/24 bicarbonate 1.1 gram capsule (Zegerid OTC) sertraline 100 mg tablet (Zoloft) 100 mg PO QDAY ##2 12/31/15 lutein 10 mg tablet 25 mg PO DAILY oral ##0 02/12/16 01/10/24 albuterol sulfate 90 mcg/actuation 1 puff inhalation Q4-6H PRN 05/30/18 01/10/24 aerosol inhaler (Ventolin HFA) Shortness Of Breath dulaglutide 1.5 mg/0.5 mL 1.5 mg SUBCUT Q2W 05/30/18 01/10/24 subcutaneous pen injector (Trulicity) metoprolol tartrate 25 mg tablet 25 mg PO BID 05/30/18 01/10/24 aspirin 81 mg tablet,delayed 81 mg PO DAILY 01/10/24 01/10/24 release buspirone 15 mg tablet 22.5 mg PO ONCE PM 01/10/24 01/10/24 dulaglutide 4.5 mg/0.5 mL 4.5 mg SUBCUT WEEKLY 01/10/24 01/10/24 subcutaneous pen injector (Trulicity) empagliflozin 10 mg tablet 10 mg PO DAILY 01/10/24 01/10/24 (Jardiance) fenofibrate micronized 43 mg 43 mg PO DAILY 01/10/24 01/10/24 capsule insulin glargine U-300 conc 300 70 unit SUBCUT DAILY 01/10/24 01/10/24 unit/mL (1.5 mL) subcutaneous pen (Toudorindao SoloStar U-300 Insulin) ipratropium bromide 17 2 puff inhalation 4XD PRN wheezing 01/10/24 01/10/24 mcg/actuation HFA aerosol inhaler (Atrovent HFA) ipratropium bromide 17 2 puff inhalation 4XD PRN wheezing 01/10/24 01/10/24 mcg/actuation HFA aerosol inhaler (Atrovent HFA) isosorbide mononitrate 60 mg 60 mg PO DAILY 01/10/24 01/10/24 tablet,extended release 24 hr Allergies Allergy/AdvReac Type Severity Reaction Status Date / Time adhesive tape [ADHESIVE TAPE] Allergy Unknown BLISTERS Verified 01/10/24 09:31 AND PEELING simvastatin [SIMVASTATIN] AdvReac Unknown MUSCLE Verified 01/10/24 09:31 CRAMPS Review of Systems Review of Systems ROS Unobtainable: All systems reviewed & are unremarkable except as noted in HPI and below Patient History Social History Smoking Status: Former smoker alcohol intake: never eating out: 1-3 times/week Type(s) of exercise: none Smoking Status: Former smoker alcohol intake frequency: 0-2 drinks per day Substance Use Type: does not use Exam Narrative Exam Narrative: GENERAL: Alert and oriented x three, obese female in moderate distress. No diaphoresis. HEENT: Head normocephalic, atraumatic, EOMI, pupils reactive, face symmetric, moist mucous membranes NECK: Supple, full range of motion CARDIOVASCULAR: Regular rate and rhythm without murmurs, rubs or gallops. RESPIRATORY: Breath sounds equal bilaterally, no wheezes rales or rhonchi. No tachypnea or accessory muscle use. ABDOMEN: Soft, tender in the epigastric and right upper quadrant.. Normoactive bowel sounds all 4 quadrants. No guarding or rebound, rigidity, no mass, no pulsatile mass or bruit. : No CVA tenderness EXTREMITIES: Normal range of motion, no clubbing or edema. Neurovascularly intact NEUROLOGICAL: Cranial nerves II through XII grossly intact. Moving all extremities SKIN: Warm, dry, no petechiae, no rashes or lesions. Initial Vital Signs Initial Vital Signs: Vital Signs Temperature 97.3 F L 01/10/24 09:27 Pulse Rate 71 01/10/24 09:27 Respiratory Rate 14 01/10/24 09:27 Blood Pressure 142/73 H 01/10/24 09:27 Pulse Oximetry 98 01/10/24 09:27 Oxygen Delivery Method Room Air 01/10/24 09:27 Course Orders Ordered: ED Orders 01/10/24 09:31 EKG-12 Lead Stat 01/10/24 09:40 Complete Blood Count AUTO DIFF Stat Comprehensive Metabolic Panel Stat Lipase Stat 01/10/24 09:44 US abdomen limited Stat 01/10/24 11:01 Consult to General Surgery Stat Heparin Sodium (Porcine) (Heparin 5,000 Unit/Ml Vial) 5,000 unit SUBCUT BID ZURI Last Admin: 01/10/24 12:44 Dose: 5,000 unit Documented By: MM Hydromorphone HCl (Hydromorphone 0.5 Mg Inj) 0.5 mg IV Q2H PRN PRN Reason: Pain, Severe (7-10) Sodium Chloride (Normal Saline 0.9%) 1,000 mls @ 100 mls/hr IV CONT ZURI Naloxone HCl (Naloxone 0.4 Mg/Ml Vial) 0.2 mg IV Q2MIN PRN PRN Reason: Opiate Reversal Ondansetron HCl (Ondansetron 4 Mg/2 Ml Inj) 4 mg IV NOW PRN PRN Reason: Nausea And Vomiting Last Admin: 01/10/24 09:37 Dose: 4 mg Documented By: CHRYSTAL Ondansetron HCl (Ondansetron 4 Mg/2 Ml Inj) 4 mg IV Q8HR PRN PRN Reason: Nausea And Vomiting Discontinued Medications Hydromorphone HCl (Hydromorphone 0.5 Mg Inj) 0.5 mg IV NOW ONE Stop: 01/10/24 11:13 Last Admin: 01/10/24 11:50 Dose: 0.5 mg Documented By: AVERY Sodium Chloride (Normal Saline 0.9%) 1,000 mls @ 1,000 mls/hr IV BOLUS ONE Stop: 01/10/24 10:43 Last Infusion: 01/10/24 10:55 Dose: Infused Documented By: Admin: 01/10/24 09:54 Dose: 1,000 mls/hr Documented By: CHRYSTAL Dextrose/Sodium Chloride (Dextrose 5%-0.9% Ns) 1,000 mls @ 100 mls/hr IV CONT [facility] Last Admin: 01/10/24 13:40 Dose: Not Given Documented By: LEXUS Ketorolac Tromethamine (Ketorolac 30 Mg/Ml Vial) 15 mg IV NOW ONE Stop: 01/10/24 09:45 Last Admin: 01/10/24 09:53 Dose: 15 mg Documented By: CHRYSTAL Ondansetron HCl (Ondansetron 4 Mg Odt) 4 mg PO NOW PRN PRN Reason: Nausea And Vomiting Ondansetron HCl (Ondansetron 4 Mg/2 Ml Inj) 4 mg IV NOW ONE Stop: 01/10/24 11:59 Last Admin: 01/10/24 12:02 Dose: 4 mg Documented By: AVERY Vital Signs Vital signs: Vital Signs - 8 hr 01/10/24 09:27 01/10/24 09:45 01/10/24 09:46 Temperature 97.3 F L Pulse Rate 71 Respiratory Rate 14 Blood Pressure 142/73 H 172/79 H Pulse Oximetry 98 96 Oxygen Delivery Method Room Air 01/10/24 09:46 01/10/24 10:00 01/10/24 10:00 Temperature Pulse Rate 66 66 Respiratory Rate Blood Pressure 175/81 H Pulse Oximetry 99 99 Oxygen Delivery Method 01/10/24 10:30 01/10/24 10:31 01/10/24 10:31 Temperature Pulse Rate 70 69 Respiratory Rate 16 13 Blood Pressure 204/84 H Pulse Oximetry 97 98 Oxygen Delivery Method 01/10/24 11:00 01/10/24 11:04 01/10/24 11:04 Temperature Pulse Rate 72 73 Respiratory Rate 17 18 Blood Pressure 176/81 H Pulse Oximetry 96 97 Oxygen Delivery Method 01/10/24 11:30 01/10/24 11:30 Temperature Pulse Rate 74 Respiratory Rate 15 Blood Pressure 171/81 H Pulse Oximetry 96 Oxygen Delivery Method MDM - Abdominal Pain Lab Data 01/10/24 09:40 01/10/24 09:40 Labs: Lab Results 01/10/24 Range/Units 09:40 WBC 10.9 (4.5-11.0) X10^3/uL RBC 5.42 H (4.0-5.2) X10^6/uL Hgb 12.8 (12.0-16.0) g/dL Hct 39.5 (36-46) % MCV 72.9 L (80-100) fL MCH 23.7 L (26-34) PG MCHC 32.4 (30-36) % RDW 15.7 H (11.6-14.8) % Plt Count 406 H (150-400) X10^3/uL Neut % (Auto) 89.4 H (50-75) % Lymph % (Auto) 5.6 L (25-40) % [place] % (Auto) 4.2 (3-14) % Eos % (Auto) 0.4 L (2-4) % Baso % (Auto) 0.4 (0-2) % Neut # (Auto) 9700 H (5963-0431) /uL Lymph # (Auto) 600 L (7609-7781) /uL [place] # (Auto) 500 (0-900) /uL Eos # (Auto) 0 (0-450) /uL Baso # (Auto) 0 (0-100) /uL Sodium 139 (137-145) mmol/L Potassium 4.5 (3.4-5.1) mmol/L Chloride 107 (98-107) mmol/L Carbon Dioxide 21 L (22-32) mmol/L BUN 21 H (7-17) mg/dL Creatinine 1.10 H (0.52-1.04) mg/dL Estimated GFR 59 L (>60) mL/min BUN/Creatinine Ratio 19.1 (6-22) Glucose 236 H (70-100) mg/dL Calcium 10.4 H (8.4-10.2) mg/dL Total Bilirubin 1.4 H (0.2-1.3) mg/dL AST 219 H (14-36) IU/L ALT 113 H (<35) IU/L Alkaline Phosphatase 135 H (38-126) U/L Total Protein 6.9 (6.3-8.2) g/dL Albumin 4.1 (3.5-5.0) g/dL Globulin 2.8 (1.7-4.1) g/dL Albumin/Globulin Ratio 1.5 (1.0-2.8) Lipase 32743 H (23-300) U/L Imaging Data US - abdomen: Radiologist's Impression: Close Abdomen Ultrasound (Signed) José Luis Grayderic - 01/10/24 Launch?Image [address] [address] Ultrasound Report Signed Patient: Deanna Molina MR#: [id number] : 1965 Acct:[id number] Age/Sex: 58 / F Date of Service: 01/10/24 Loc: ED Accession Number: [id number] Procedure: US abdomen limited Ordering Provider: Juanita Bassett D.O. PROCEDURE: US ABDOMEN LIMITED INDICATIONS: RUQ/EPIGASTRIC PAIN TECHNIQUE: Real-time scanning was performed of the abdominal and retroperitoneal organs, with image documentation. COMPARISON: [facility], CT, CT ABDOMEN W CON, 10/13/2023, 14:36. FINDINGS: Liver: Liver is normal in size and homogeneous in echotexture. Gallbladder: Numerous mobile gallstones are present in the gallbladder. No wall thickening. No pericholecystic edema. Negative sonographic Sales's sign. Biliary ducts: Intrahepatic bile ducts are non-dilated. Extrahepatic bile duct caliber measures 6.2 mm. Normal is 6-7 mm or less in diameter, or 10 mm or less post-cholecystectomy. Pancreas: Visualized portions of the pancreas are sonographically normal. Miscellaneous: No free abdominal fluid. IMPRESSION: Cholelithiasis without evidence of acute cholecystitis. Dictated by: Leon Gray M.D. on 01/10/2024 at 10:45 Approved by: Leon Gray M.D. on 01/10/2024 at 10:46 ECG Data Attestation: I personally reviewed and interpreted this ECG as follows: Prior ECG tracings: not available for review Interpretation: Normal sinus rhythm rate of 69 [place] 160 QRS of 164 QTC of 473. Left bundle-branch block. No priors for comparison. MDM Narrative Medical decision making narrative: [age] year female with onset of epigastric and right upper quadrant pain starting at 1:30 a.m. this morning has been persistent has had episodes on and off in the past. Patient is quite tender on examination particularly right upper quadrant. Prior CT abdomen pelvis which showed splenomegaly, cholelithiasis without any wall thickening or fat stranding and a benign right adrenal adenoma at that time in October 2023. Labs show white count of 10.9 hemoglobin 12.8 platelets of 406, predominance of neutrophils. Sodium is 139 potassium 4.5 chloride 107 with a 06/18/2020 BUN 21 and a creatinine 1.10 patient has prior from September of 2023 it was 1.14, glucose is 236, calcium is 10.4 with a total bili of 1.4, AST of 219 ALT 113 alk-phos of 135 up from priors and a lipase of EKG shows left bundle-branch block. No priors for comparison. Ultrasound cholelithiasis without evidence of acute cholecystitis normal biliary ducts no significant changes to visualize portions pancreas. Patient had fluids, Zofran and Toradol on recheck. Patient's pain is improved after additional doses of pain medication. Spoke with Dr. Root, general surgery asked that we trend her labs and we will follow along. Spoke with Dr. Kenney hospitalist who accepts for admission. Discharge Plan Departure Patient Disposition: Admitted As Inpatient Clinical Impression: Pancreatitis, Cholelithiasis Admit Date/Time: 01/10/24 11:35 Admit Provider: Elliott Kenney
--- NOTE | 2024-01-10 09:44 | DI.US.S_ITS ---
PROCEDURE: US ABDOMEN LIMITED INDICATIONS: RUQ/EPIGASTRIC PAIN TECHNIQUE: Real-time scanning was performed of the abdominal and retroperitoneal organs, with image documentation. COMPARISON: [facility], CT, CT ABDOMEN W CON, 10/13/2023, 14:36. FINDINGS: Liver: Liver is normal in size and homogeneous in echotexture. Gallbladder: Numerous mobile gallstones are present in the gallbladder. No wall thickening. No pericholecystic edema. Negative sonographic Sales's sign. Biliary ducts: Intrahepatic bile ducts are non-dilated. Extrahepatic bile duct caliber measures 6.2 mm. Normal is 6-7 mm or less in diameter, or 10 mm or less post-cholecystectomy. Pancreas: Visualized portions of the pancreas are sonographically normal. Miscellaneous: No free abdominal fluid. IMPRESSION: Cholelithiasis without evidence of acute cholecystitis. Dictated by: Leon Gray M.D. on 01/10/2024 at 10:45 Approved by: Leon Gray M.D. on 01/10/2024 at 10:46
[2024-01-10] MEDS: KETOROLAC 30 MG/ML VIAL 15 MG IV (09:53)
[2024-01-10 09:54] LABS: Add Manual Diff / Slide Review NO; Basophils Absolute Auto 0 /uL (0-100); Basophils Percent Auto 0.4 % (0-2); Eosinophils Absolute Auto 0 /uL (0-450); Eosinophils Percent Auto 0.4 % (2-4); Hematocrit 39.5 % (36-46); Hemoglobin 12.8 g/dL (12.0-16.0); Lymphocytes Absolute Auto 600 /uL (1100-4500); Lymphocytes Percent Auto 5.6 % (25-40); Mean Corpuscular HGB Conc 32.4 % (30-36); Mean Corpuscular Hemoglobin 23.7 PG (26-34); Mean Corpuscular Volume 72.9 fL (80-100); Monocytes Absolute Auto 500 /uL (0-900); Monocytes Percent Auto 4.2 % (3-14); Neutrophils Absolute Auto 9700 /uL (1500-7000); Neutrophils Percent Auto 89.4 % (50-75); Platelet Count 406 X10^3/uL (150-400); Red Blood Cell Count 5.42 X10^6/uL (4.0-5.2); Red Cell Distribution Width 15.7 % (11.6-14.8); White Blood Cell Count 10.9 X10^3/uL (4.5-11.0)
[2024-01-10] MEDS: SODIUM CHLORIDE 0.9% 1,000 ML 1000 ML IV (09:54)
[2024-01-10 10:03] LABS: Alanine Aminotransferase 113 IU/L (<35); Albumin 4.1 g/dL (3.5-5.0); Albumin Globulin Ratio 1.5 (1.0-2.8); Alkaline Phosphatase 135 U/L (38-126); Aspartate Aminotransferase 219 IU/L (14-36); BUN Creatinine Ratio 19.1 (6-22); Bilirubin Total 1.4 mg/dL (0.2-1.3); Blood Urea Nitrogen 21 mg/dL (7-17); Calcium 10.4 mg/dL (8.4-10.2); Carbon Dioxide 21 mmol/L (22-32); Chloride 107 mmol/L (98-107); Estimated Glomerular Filt Rate 59 mL/min (>60); Globulin 2.8 g/dL (1.7-4.1); Glucose 236 mg/dL (70-100); HEMOLYSIS 23 (0-50); Potassium 4.5 mmol/L (3.4-5.1); Sodium 139 mmol/L (137-145); Total Protein 6.9 g/dL (6.3-8.2)
--- NOTE | 2024-01-10 10:25 | EKG_ITS ---
[address] [address] Test Date: 2024-01-10 Pat Name: Deanna Molina Department: [facility] Room: Gender: Female [employer]: YINKA : 1965 Requested By: Order Number: [id number] Reading MD: Elliott Kenney Measurements Intervals [place] Rate: 69 P: 17 MI: 160 QRS: -27 QRSD: 164 T: 108 QT: 442 QTc: 473 Interpretive Statements Normal sinus rhythm Left bundle branch block Electronically Signed On 01-10-2024 15:31:18 PDT by Elliott Kenney
[2024-01-10 10:37] LABS: Lipase 27501 U/L (23-300)
[2024-01-10] MEDS: HYDROMORPHONE 0.5 MG INJ IV ×6 (11:50→22:42)
[2024-01-10] MEDS: ONDANSETRON 4 MG/2 ML INJ IV ×2 (12:02→15:52)
--- NOTE | 2024-01-10 12:11 | PM.HP.1 ---
History of Present Illness History of Present Illness Date Patient Seen: 01/10/24 Chief complaint: ABD Pain vomitting Narrative: From ED doctor: 58-year-old female with history of diabetes on insulin, hypertension, dyslipidemia on aspirin daily who presents with complaint of epigastric pain/right upper quadrant pain. Patient states she has had episodes on and off in the past she is seen her physician been told she has a sluggish gallbladder and has had CT imaging in the past which shows cholelithiasis. Patient states nothing seems to bring on the episode they typically last about 24 hours and then resolved. She had an episode last week and then woke up this morning at 1:30 a.m. and has had persistent pain since then. She states it does not radiate to any new locations. She states nothing seems to bring it on specifically. Nothing seems to make it better. She has not had any fevers she has had nausea and vomiting this morning. She denies any diarrhea or constipation. Denies any urinary symptoms. Patient states she is on insulin for diabetes, medication for hypertension and dyslipidemia. States allergies to adhesive tape and statins. States she has had orthopedic surgeries but no prior cardiac, pulmonary or abdominal surgeries. No tobacco, no regular alcohol, no recreational drugs. She is accompanied by her sister Additional information: [facility] Social History Smoking Status: Former smoker eating out: 1-3 times/week Type(s) of exercise: none Meds Home Medications and Allergies Home Medications Medication Instructions Recorded Confirmed Type albiglutide 50 mg/0.5 mL 50 mg SC QWEEK ##0 12/31/15 History subcutaneous pen injector (Tanzeum) atorvastatin 20 mg tablet (Lipitor) 20 mg PO BEDTIME #30 tabs 12/31/15 05/30/18 History ferrous fumarate 324 mg (106 mg ##0 12/31/15 History iron) tablet insulin glargine 100 unit/mL (3 0 unit SQ HS ##60 12/31/15 05/30/18 History mL) subcutaneous pen (Lantus Solostar U-100 Insulin) levothyroxine 125 mcg tablet 125 mcg PO DAILY #0 tabs 12/31/15 05/30/18 History (Synthroid) metformin 500 mg tablet 500 mg PO BIDCC #0 tabs 12/31/15 05/30/18 History (Glucophage) omeprazole 20 mg-sodium 1 cap PO EVERY OTHER DAY ##0 12/31/15 History bicarbonate 1.1 gram capsule (Zegerid OTC) sertraline 100 mg tablet (Zoloft) 100 mg PO QDAY ##2 12/31/15 History [CRANBERRY VITAMIN] ##0 02/12/16 History acetaminophen 300 mg-codeine 30 mg 1 tab PO Q4HP PRN #20 tabs 02/12/16 Rx tablet lutein 10 mg tablet ##0 02/12/16 History albuterol sulfate 90 mcg/actuation 1 puff inhalation Q4-6H PRN 05/30/18 05/30/18 History aerosol inhaler (Ventolin HFA) Shortness Of Breath dulaglutide 1.5 mg/0.5 mL 1.5 mg SUBCUT Q2W 05/30/18 05/30/18 History subcutaneous [facility] ([facility] metoprolol tartrate 25 mg tablet 25 mg PO BID 05/30/18 05/30/18 History Allergies Allergy/AdvReac Type Severity Reaction Status Date / Time adhesive tape [ADHESIVE TAPE] Allergy Unknown BLISTERS Verified 01/10/24 09:31 AND PEELING simvastatin [SIMVASTATIN] AdvReac Unknown MUSCLE Verified 01/10/24 09:31 CRAMPS Review of Systems Review of Systems Narrative: All else reviewed and otherwise unremarkable except as noted in the history and physical. Exam Vital Signs (past 8 hours): - 01/10/24 09:27 01/10/24 09:45 01/10/24 09:46 Temperature 97.3 F L Pulse Rate 71 Respiratory Rate 14 Blood Pressure 142/73 H 172/79 H Pulse Oximetry 98 96 Oxygen Delivery Method Room Air 01/10/24 09:46 01/10/24 10:00 01/10/24 10:00 Temperature Pulse Rate 66 66 Respiratory Rate Blood Pressure 175/81 H Pulse Oximetry 99 99 Oxygen Delivery Method 01/10/24 10:30 01/10/24 10:31 01/10/24 10:31 Temperature Pulse Rate 70 69 Respiratory Rate 16 13 Blood Pressure 204/84 H Pulse Oximetry 97 98 Oxygen Delivery Method 01/10/24 11:00 01/10/24 11:04 01/10/24 11:04 Temperature Pulse Rate 72 73 Respiratory Rate 17 18 Blood Pressure 176/81 H Pulse Oximetry 96 97 Oxygen Delivery Method 01/10/24 11:30 01/10/24 11:30 Temperature Pulse Rate 74 Respiratory Rate 15 Blood Pressure 171/81 H Pulse Oximetry 96 Oxygen Delivery Method Oxygen Delivery Method Room Air Narrative Exam Narrative: NAD, alert and oriented, fluent speech, calm. Normocephalic skull, EOMI, anicteric sclera, symmetric pupils. Oropharynx unremarkable, no droop. Neck supple, midline trachea, no adenopathy. Lungs clear, normal rate and effort. Heart regular, no murmur gallop or rub. Abdomen is soft, non distended and non tender. Extremities are free of edema. Skin is free of rash or lesions. Joints are not swollen or deformed. Judgment appears to be normal. Objective ECG Impression: Normal sinus rhythm Left bundle branch block Imaging Multiple studies:: Radiologist's impression: Abdomen US: Cholelithiasis without evidence of acute cholecystitis. Labs 01/10/24 09:40 01/10/24 09:40 Labs: Laboratory Results - last 24 hr 01/10/24 09:40 WBC 10.9 RBC 5.42 H Hgb 12.8 Hct 39.5 MCV 72.9 L MCH 23.7 L MCHC 32.4 RDW 15.7 H Plt Count 406 H Neut % (Auto) 89.4 H Lymph % (Auto) 5.6 L [place] % (Auto) 4.2 Eos % (Auto) 0.4 L Baso % (Auto) 0.4 Neut # (Auto) 9700 H Lymph # (Auto) 600 L [place] # (Auto) 500 Eos # (Auto) 0 Baso # (Auto) 0 Sodium 139 Potassium 4.5 Chloride 107 Carbon Dioxide 21 L BUN 21 H Creatinine 1.10 H Estimated GFR 59 L BUN/Creatinine Ratio 19.1 Glucose 236 H Calcium 10.4 H Total Bilirubin 1.4 H AST 219 H ALT 113 H Alkaline Phosphatase 135 H Total Protein 6.9 Albumin 4.1 Globulin 2.8 Albumin/Globulin Ratio 1.5 Lipase 15299 H Assessment & Plan Assessment & Plan narrative: 1. Gallstone pancreatitis, present on admission and active. 2. Dm 2, insulin-dependent. Present on admission and active. 3. Hypertension, present on admission and active. 4. HLD, present on admission and active. 5. Morbid obesity with BMI 42, present on admission and active. Plan: -NPO -IV fluids -analgesics -no evidence of common bile duct stone, trend LFTs and lipase. -Lantus unless admitted to control sugars. Anticipate NPO for 24-48 hours. Doses will be admitted as such. -monitor blood pressure. Admitted inpatient status, anticipate 2 midnight hospital stay. Full resuscitation. Time-Based Coding :: 35 min spent with patient and on the chart (including review of chart, obtaining history, exam, reviewing outside data, placing orders, documenting exam and treatment plan, and counseling patient) on 01/09. Quality MIPS - Admit I confirm the patient?s Advance Care Plan is present, Code status is documented, Surrogate decision maker is in patient?s record [If Yes, STOP here]: Yes MIPS - Meds 'Current medications' to include all prescriptions, [id number] products, herbals, cannabis/cannabidiol products, and vitamin/mineral/dietary (nutritional) supplements. I have utilized all available resources to obtain, update, or review the patient?s current medications. [If Yes, STOP here]: Yes
[2024-01-10] MEDS: HEPARIN 5,000 UNIT/ML VIAL 5000 UNIT SUBCUT ×2 (12:44→20:24)
--- NOTE | 2024-01-10 13:54 | DI.MRI.S_ITS ---
PROCEDURE: MR ABDOMEN WO/W CON INDICATIONS: pancreatitis and abnormal LFT TECHNIQUE: Coronal HASTE, axial 2D FLASH in- and [id number]; axial breath-hold T2 FSE. Dynamic axial VIBE during the administration of contrast; post-contrast coronal VIBE or 2D FLASH with fat saturation from the hepatic dome to the iliac crests. Optional diffusion weighted imaging and ADC may be performed. COMPARISON: [facility], CT, CT ABDOMEN W CON, 10/13/2023, 14:36. [facility], US, US ABDOMEN LIMITED, 01/10/2024, 10:09. FINDINGS: Image quality: Diagnostic. Lung bases: Unremarkable. Liver: No solid mass. Gallbladder: Distended gallbladder without significant wall thickening. There are tiny granular stones layering dependently at the neck. Biliary ducts: No biliary dilation. No filling defect to suggest choledocholithiasis. Pancreas: There is moderate diffuse enlargement of pancreatic body and tail with prominent interstitial edema. Moderate peripancreatic free fluid and free fluid extending caudally along right renal fascia. There may be very slightly delayed enhancement of the mid pancreatic tail parenchyma, but there is fairly uniform enhancement on the delayed phase imaging. No visible ductal dilatation. Ductal anatomy is classic. No focal drainable fluid collections. Spleen: Size is within normal limits. Adrenal Glands: Small right adrenal adenoma. Normal left adrenal gland. Kidneys and Ureters: No hydronephrosis. No solid mass. No complex renal cystic lesion which requires follow up. Peritoneum, Stomach and Bowel: Moderate periduodenal fluid surrounding the 1st and 2nd portions. Decompressed stomach. Visible bowel loops are otherwise normal. Ventral Wall: No hernia. Abdominal Nodes: No retroperitoneal or mesenteric adenopathy by size criteria. Vessels: The abdominal aorta, IVC, and portal vein are of normal caliber. Splenic vein is patent. Bones: No aggressive osseous abnormality. IMPRESSION: Moderate acute interstitial pancreatitis without complication. Cholelithiasis without MR evidence of choledocholithiasis. Dictated by: China Mckenna M.D. on 01/10/2024 at 16:42 Approved by: China Mckenna M.D. on 01/10/2024 at 16:51
[2024-01-10] MEDS: INSULIN GLARGINE 100 UNIT/ML 3ML PEN 15 UNIT SUBCUT ×2 (14:05→20:25)
[2024-01-10] MEDS: SODIUM CHLORIDE 0.9% 1,000 ML 100 ML IV (14:06)
[2024-01-10] MEDS: HYDRALAZINE 20 MG/ML VIAL 10 MG IV (22:48)
[2024-01-11] MEDS: SODIUM CHLORIDE 0.9% 1,000 ML 100 ML IV ×3 (00:51→21:05)
[2024-01-11] MEDS: ONDANSETRON 4 MG/2 ML INJ IV ×2 (00:52→14:47)
[2024-01-11] MEDS: HYDROMORPHONE 0.5 MG INJ IV (01:00)
[2024-01-11] MEDS: KETOROLAC 30 MG/ML VIAL 15 MG IV ×2 (04:06→18:07)
[2024-01-11 04:44] LABS: Add Manual Diff / Slide Review NO; Basophils Absolute Auto 0 /uL (0-100); Basophils Percent Auto 0.2 % (0-2); Eosinophils Absolute Auto 0 /uL (0-450); Eosinophils Percent Auto 0.1 % (2-4); Hematocrit 40.1 % (36-46); Hemoglobin 12.8 g/dL (12.0-16.0); Lymphocytes Absolute Auto 600 /uL (1100-4500); Lymphocytes Percent Auto 3.3 % (25-40); Mean Corpuscular HGB Conc 31.9 % (30-36); Mean Corpuscular Hemoglobin 23.4 PG (26-34); Mean Corpuscular Volume 73.3 fL (80-100); Monocytes Absolute Auto 1000 /uL (0-900); Monocytes Percent Auto 5.9 % (3-14); Neutrophils Absolute Auto 15900 /uL (1500-7000); Neutrophils Percent Auto 90.5 % (50-75); Platelet Count 387 X10^3/uL (150-400); Red Blood Cell Count 5.48 X10^6/uL (4.0-5.2); Red Cell Distribution Width 16.1 % (11.6-14.8); White Blood Cell Count 17.5 X10^3/uL (4.5-11.0)
[2024-01-11 05:07] LABS: Alanine Aminotransferase 92 IU/L (<35); Albumin 3.6 g/dL (3.5-5.0); Albumin Globulin Ratio 1.3 (1.0-2.8); Alkaline Phosphatase 103 U/L (38-126); Aspartate Aminotransferase 66 IU/L (14-36); BUN Creatinine Ratio 23.2 (6-22); Bilirubin Total 0.7 mg/dL (0.2-1.3); Blood Urea Nitrogen 26 mg/dL (7-17); Carbon Dioxide 22 mmol/L (22-32); Chloride 110 mmol/L (98-107); Estimated Glomerular Filt Rate 57 mL/min (>60); Globulin 2.7 g/dL (1.7-4.1); Glucose 164 mg/dL (70-100); HEMOLYSIS < 15 (0-50); Potassium 4.3 mmol/L (3.4-5.1); Sodium 140 mmol/L (137-145); Total Protein 6.3 g/dL (6.3-8.2)
[2024-01-11 05:12] LABS: Hemoglobin A1C% w Est Avg Glu 5.8 % (4.0-6.0)
[2024-01-11 05:29] LABS: Lipase 7325 U/L (23-300)
--- NOTE | 2024-01-11 07:19 | P.PN_ITS ---
Subjective Subjective Interval history: Summary: Admitted with gallstone pancreatitis. MRCP negative for CBD stones. Subjective: She feels about 20% improved. She still has epigastric pain, less nausea. No vomiting. MRCP was negative for common bile duct stone. Surgery is indicated recommendations for a cholecystectomy either within this hospitalization or delayed and outpatient dependent on her clinical course. Exam Vital Signs (past 8 hours): Oxygen Delivery Method Room Air Oxygen Flow Rate 0 Narrative Exam Narrative: NAD, alert and oriented. Fluent speech. Lungs are clear, normal rate and effort. Heart is regular, no murmur gallop or rub. Abdomen is soft, non distended. There is general epigastric tenderness without guarding or rebound. Extremities are free of edema. Objective Imaging MRCP:: Radiologist's impression: Moderate acute interstitial pancreatitis without complication. Cholelithiasis without MR evidence of choledocholithiasis. Labs 01/11/24 04:30 01/11/24 04:30 Labs: Laboratory Results - last 24 hr 01/10/24 01/11/24 09:40 04:30 WBC 10.9 17.5 H D RBC 5.42 H 5.48 H Hgb 12.8 12.8 Hct 39.5 40.1 MCV 72.9 L 73.3 L MCH 23.7 L 23.4 L MCHC 32.4 31.9 RDW 15.7 H 16.1 H Plt Count 406 H 387 Neut % (Auto) 89.4 H 90.5 H Lymph % (Auto) 5.6 L 3.3 L [place] % (Auto) 4.2 5.9 Eos % (Auto) 0.4 L 0.1 L Baso % (Auto) 0.4 0.2 Neut # (Auto) 9700 H 69899 H Lymph # (Auto) 600 L 600 L [place] # (Auto) 500 1000 H Eos # (Auto) 0 0 Baso # (Auto) 0 0 Sodium 139 140 Potassium 4.5 4.3 Chloride 107 110 H Carbon Dioxide 21 L 22 BUN 21 H 26 H Creatinine 1.10 H 1.12 H Estimated GFR 59 L 57 L BUN/Creatinine Ratio 19.1 23.2 H Glucose 236 H 164 H Hemoglobin A1c 5.8 Calcium 10.4 H 9.0 Total Bilirubin 1.4 H 0.7 AST 219 H 66 H ALT 113 H 92 H Alkaline Phosphatase 135 H 103 Total Protein 6.9 6.3 Albumin 4.1 3.6 Globulin 2.8 2.7 Albumin/Globulin Ratio 1.5 1.3 Lipase 67326 H 7325 H D [facility] Social History household members: children Smoking Status: Former smoker alcohol intake: never eating out: 1-3 times/week Type(s) of exercise: none Assessment & Plan Assessment & Plan narrative: 1. Gallstone pancreatitis, present on admission and active. MRCP negative for CBD stones or obstruction. 2. Dm 2, insulin-dependent. Present on admission and active. 3. Hypertension, present on admission and active. 4. HLD, present on admission and active. 5. Morbid obesity with BMI 42, present on admission and active. Plan: -NPO -IV fluids -analgesics -no evidence of common bile duct stone, trend LFTs and lipase. These are improving rapidly. -Lantus unless admitted to control sugars. Anticipate NPO for 24-48 hours. Doses will be admitted as such. -monitor blood pressure. -discussed with surgery, plan is for cholecystectomy. It was unclear if this would be in the next several days over the next several weeks. This would depend on her clinical response. Admitted inpatient status, anticipate 2 midnight hospital stay. Full resuscitation. Time-Based Coding :: 25 min spent with patient and on the chart (including review of chart, obtaining history, exam, reviewing outside data, placing orders, documenting exam and treatment plan, and counseling patient) on 01/10.
--- NOTE | 2024-01-11 07:38 | PM.CALLCOV.1 ---
Call Coverage Note Note Date of Patient Contact: 01/11/24 Time of Patient Contact: 07:38 Narrative of Care Provided: Recommend lap michelle once Pancreatitis resolves.
[2024-01-11 08:00] VITALS: BP 160/85; PULSE 92; RESP 18; TEMP 36.8; O2SAT 97
[2024-01-11] MEDS: INSULIN LISPRO 100 UNIT/ML 3ML VIAL SUBCUT (08:24)
[2024-01-11] MEDS: INSULIN GLARGINE 100 UNIT/ML 3ML PEN 15 UNIT SUBCUT ×2 (08:25→21:07)
[2024-01-11] MEDS: MORPHINE 2 MG/ML INJ IV ×3 (08:25→14:15)
[2024-01-11] MEDS: HEPARIN 5,000 UNIT/ML VIAL 5000 UNIT SUBCUT ×2 (08:28→20:55)
--- NOTE | 2024-01-11 10:45 | CM.DANOTE ---
Initial DCP Assessment Visit Note Reviewed EMR and team rounds for status updates. Met with pt at bedside to introduce self and role. Pt was found to be laying in bed, grimacing, expressing frustration with the pain she is experiencing. She is alert/oriented and was able to share her home circumstances and plan for return home once medically stable for d/c. Pt lives with her adult son with special needs in their apartment in [place]. Both her sister and mother are very supportive and assist with her own needs as well as her son's. Her sister will plan to drive her home once she's medically stable for d/c. Payor: [facility] PCP: Lisa Nunes Pt is a 58 year-old F who presented to the ED yesterday afternoon with c/o right upper gastric pain. She shared that she has had these pain flare-ups for the last several weeks. She had a severe one last week while she was traveling, and another episode the evening before she came to the ED that persisted and worsened over the night. She has been seen by her PCP in the past who did a CT and confirmed the presence of gallstones. She was dx with gallstone pancreatitis, started on IV fluids/pain meds/Zofran, and admitted to the floor for further evaluation/tx. Surgery was consulted, Dr. Root recommended that pt's pancreatitis should be resolved, followed by removal of the gallbladder, pending either inpt or outpatient for the surgery. DCP will continue to follow and assist with final d/c recommendations and needs. Discharge Planning/Care Management CM Discharge Assessment Start: 01/11/24 10:35 Freq: Status: Active Protocol: Document 01/11/24 10:35 DPL (Rec: 01/11/24 10:45 DPL [id number]) Discharge Planning Assessment Assigned [employer] Offbearer MALA Lu Advance Directives? No History Provided By Patient,Medical Record Has Patient been admitted in last 30 No days? Prior Living Arrangements Mobile home Household Members children Type of transporation used prior to Drives own vehicle admit Independent with ADL's Yes Is patient alert and oriented? Yes Caregiver for Another Yes: 38 year-old special needs son Comment OP gallbladder surgery Barriers to Discharge No Discharge Plan Home Transportation Arrangement Sister Referrals Initiated None needed If patient plan is SNF: Has PASSR been Yes completed? Whiteboard Updated in Patient Room with Yes name and ext. # of L[employer] Chain Offbearer Review Status In Process Please Provide Date Initial DC 01/11/24 Assessment Was Performed
--- NOTE | 2024-01-11 12:37 | P.CONS_ITS ---
History of Present Illness Consult details Date Patient Seen: 01/11/24 Time Patient Seen: 12:37 Chief complaint: ABD Pain vomitting Reason for consult: Trauma Requesting provider: Elliott Kenney Narrative: Patient with h/o of biliary colic with increasing frequency, now with mid epigastric pain, nausea and vomitting. Work up shows gallstone pancreatitis MRCP confirms radiographic changes regarding the pancreas and sludge in gall bladder. Meds Home Medications and Allergies Home Medications Medication Instructions Recorded Confirmed Type albiglutide 50 mg/0.5 mL 50 mg SC QWEEK ##0 12/31/15 01/11/24 History subcutaneous pen injector (Tanzeum) atorvastatin 20 mg tablet (Lipitor) 20 mg PO BEDTIME #30 tabs 12/31/15 01/11/24 History ferrous fumarate 324 mg (106 mg 324 mg PO DAILY ##0 12/31/15 01/11/24 History iron) tablet levothyroxine 125 mcg tablet 125 mcg PO DAILY #0 tabs 12/31/15 01/10/24 History (Synthroid) omeprazole 20 mg-sodium 1 cap PO DAILY ##0 12/31/15 01/11/24 History bicarbonate 1.1 gram capsule (Zegerid OTC) lutein 10 mg tablet 25 mg PO DAILY oral ##0 02/12/16 01/10/24 History albuterol sulfate 90 mcg/actuation 1 puff inhalation Q4-6H PRN 05/30/18 01/10/24 History aerosol inhaler (Ventolin HFA) Shortness Of Breath metoprolol tartrate 25 mg tablet 25 mg PO BID 05/30/18 01/10/24 History aspirin 81 mg tablet,delayed 81 mg PO DAILY 01/10/24 01/10/24 History release buspirone 15 mg tablet 22.5 mg PO ONCE PM 01/10/24 01/10/24 History dulaglutide 4.5 mg/0.5 mL 4.5 mg SUBCUT WEEKLY 01/10/24 01/10/24 History subcutaneous pen injector (Trulicity) empagliflozin 10 mg tablet 10 mg PO DAILY 01/10/24 01/10/24 History (Jardiance) fenofibrate micronized 43 mg 43 mg PO DAILY 01/10/24 01/10/24 History capsule insulin glargine U-300 conc 300 70 unit SUBCUT DAILY 01/10/24 01/10/24 History unit/mL (1.5 mL) subcutaneous pen (Toujeo SoloStar U-300 Insulin) ipratropium bromide 17 2 puff inhalation 4XD PRN wheezing 01/10/24 01/10/24 History mcg/actuation HFA aerosol inhaler (Atrovent HFA) isosorbide mononitrate 60 mg 60 mg PO DAILY 01/10/24 01/10/24 History tablet,extended release 24 hr fluticasone propionate 115 2 puff inhalation BID 01/11/24 01/11/24 History mcg-salmeterol 21 mcg/actuation HFA inhaler Allergies Allergy/AdvReac Type Severity Reaction Status Date / Time adhesive tape [ADHESIVE TAPE] Allergy Unknown BLISTERS Verified 01/10/24 09:31 AND PEELING simvastatin [SIMVASTATIN] AdvReac Unknown MUSCLE Verified 01/10/24 09:31 CRAMPS Exam Vital Signs (past 8 hours): - 01/11/24 08:00 Temperature 98.3 F Pulse Rate 92 H Respiratory Rate 18 Blood Pressure 160/85 H Pulse Oximetry 97 Oxygen Delivery Method Room Air Oxygen Flow Rate 0 Const General: cooperative and lethargic Nutritional Appearance: overweight HENMT Head: normocephalic and atraumatic Face and sinus: normal facial exam Eyes Sclera: sclerae normal Neck Neck: trachea midline Resp Effort & Inspection: normal respiratory effort and able to speak in complete sentences Cardio Rate: tachycardic Rhythm: regular rhythm GI Inspection: distended and obesity Palpation: soft and tender (mid epigastric tenderness) Skin General: turgor normal and No atrophy Neuro General: patient alert, patient awake and patient oriented x3 Cognition: normal cognition Psych Mental Status: mental status grossly normal Judgment: judgment good Objective Labs 01/11/24 04:30 01/11/24 04:30 Labs: Laboratory Results - last 24 hr 01/11/24 04:30 WBC 17.5 H D RBC 5.48 H Hgb 12.8 Hct 40.1 MCV 73.3 L MCH 23.4 L MCHC 31.9 RDW 16.1 H Plt Count 387 Neut % (Auto) 90.5 H Lymph % (Auto) 3.3 L [place] % (Auto) 5.9 Eos % (Auto) 0.1 L Baso % (Auto) 0.2 Neut # (Auto) 86541 H Lymph # (Auto) 600 L [place] # (Auto) 1000 H Eos # (Auto) 0 Baso # (Auto) 0 Sodium 140 Potassium 4.3 Chloride 110 H Carbon Dioxide 22 BUN 26 H Creatinine 1.12 H Estimated GFR 57 L BUN/Creatinine Ratio 23.2 H Glucose 164 H Hemoglobin A1c 5.8 Calcium 9.0 Total Bilirubin 0.7 AST 66 H ALT 92 H Alkaline Phosphatase 103 Total Protein 6.3 Albumin 3.6 Globulin 2.7 Albumin/Globulin Ratio 1.3 Lipase 7325 H D PFSH Social History household members: children Tobacco & Substance Use Smoking Status: Former smoker alcohol intake: never Diet and Exercise eating out: 1-3 times/week Type(s) of exercise: none Assessment & Plan Assessment & Plan narrative: Gallstone pancreatitis Plan: Elective lap michelle in 2-4 weeks (after pancreatitis cools down) Time-Based Coding :: [TOTAL MINUTES] spent with patient and on the chart (including review of chart, obtaining history, exam, reviewing outside data, placing orders, documenting exam and treatment plan, and counseling patient) on [DATE].
[2024-01-11 14:30] VITALS: BP 168/84
[2024-01-11 14:47] VITALS: BP 168/84
[2024-01-11] MEDS: HYDRALAZINE 20 MG/ML VIAL 10 MG IV (14:47)
[2024-01-11 15:38] VITALS: BP 153/89; PULSE 92
[2024-01-11] MEDS: METOPROLOL IR 25 MG TABLET PO ×2 (15:58→20:56)
[2024-01-11] MEDS: OXYCODONE IR 5 MG TABLET PO (18:08)
[2024-01-11 19:00] VITALS: BP 152/75; PULSE 83; RESP 20; O2SAT 95
[2024-01-11] MEDS: ALBUTEROL 2.5 MG/3 ML NEB (ADULT) INH (20:05)
[2024-01-11] MEDS: BUDESONIDE 0.5 MG/2 ML NEB INH (20:05)
[2024-01-11] MEDS: BUSPIRONE 5 MG TABLET 22.5 MG PO (20:55)
[2024-01-12 03:00] VITALS: BP 150/78; PULSE 78; RESP 20; O2SAT 98
[2024-01-12 05:36] LABS: Add Manual Diff / Slide Review NO; Basophils Absolute Auto 0 /uL (0-100); Basophils Percent Auto 0.3 % (0-2); Eosinophils Absolute Auto 100 /uL (0-450); Eosinophils Percent Auto 0.7 % (2-4); Hematocrit 35.1 % (36-46); Hemoglobin 11.1 g/dL (12.0-16.0); Lymphocytes Absolute Auto 900 /uL (1100-4500); Lymphocytes Percent Auto 5.4 % (25-40); Mean Corpuscular HGB Conc 31.5 % (30-36); Mean Corpuscular Hemoglobin 22.9 PG (26-34); Mean Corpuscular Volume 72.7 fL (80-100); Monocytes Absolute Auto 1200 /uL (0-900); Monocytes Percent Auto 6.8 % (3-14); Neutrophils Absolute Auto 15200 /uL (1500-7000); Neutrophils Percent Auto 86.8 % (50-75); Platelet Count 313 X10^3/uL (150-400); Red Blood Cell Count 4.82 X10^6/uL (4.0-5.2); Red Cell Distribution Width 16.2 % (11.6-14.8); White Blood Cell Count 17.5 X10^3/uL (4.5-11.0)
[2024-01-12] MEDS: LEVOTHYROXINE 125 MCG TABLET PO (05:41)
[2024-01-12] MEDS: OXYCODONE IR 5 MG TABLET PO (05:41)
[2024-01-12 05:56] LABS: Alanine Aminotransferase 42 IU/L (<35); Albumin 3.1 g/dL (3.5-5.0); Albumin Globulin Ratio 1.2 (1.0-2.8); Alkaline Phosphatase 88 U/L (38-126); Aspartate Aminotransferase 24 IU/L (14-36); BUN Creatinine Ratio 24.3 (6-22); Bilirubin Total 0.7 mg/dL (0.2-1.3); Blood Urea Nitrogen 27 mg/dL (7-17); Calcium 8.7 mg/dL (8.4-10.2); Carbon Dioxide 23 mmol/L (22-32); Chloride 107 mmol/L (98-107); Estimated Glomerular Filt Rate 58 mL/min (>60); Globulin 2.5 g/dL (1.7-4.1); Glucose 145 mg/dL (70-100); HEMOLYSIS < 15 (0-50); Lipase 1623 U/L (23-300); Sodium 136 mmol/L (137-145); Total Protein 5.6 g/dL (6.3-8.2)
[2024-01-12] MEDS: ALBUTEROL 2.5 MG/3 ML NEB (ADULT) INH (07:19)
[2024-01-12 07:20] VITALS: PULSE 78; RESP 16; O2SAT 97
[2024-01-12] MEDS: BUDESONIDE 0.5 MG/2 ML NEB INH (07:20)
--- NOTE | 2024-01-12 07:23 | PM.PN.1 ---
Subjective Subjective Interval history: Summary: Admitted with gallstone pancreatitis. MRCP was negative for common bile duct stone. Surgery is indicated recommendations for a cholecystectomy within 2-3 weeks. Subjective: She feels Exam Vital Signs (past 8 hours): - 01/12/24 03:00 Pulse Rate 78 Respiratory Rate 20 Blood Pressure 150/78 H Pulse Oximetry 98 Oxygen Delivery Method Room Air Oxygen Flow Rate 0 Narrative Exam Narrative: NAD, alert and oriented. Fluent speech. Lungs are clear, normal rate and effort. Heart is regular, no murmur gallop or rub. Abdomen is soft, non distended. Extremities are free of edema. Objective Imaging MRI - abdomen: Radiologist's impression: Moderate acute interstitial pancreatitis without complication. Cholelithiasis without MR evidence of choledocholithiasis. Labs 01/12/24 05:12 01/12/24 05:12 Labs: Laboratory Results - last 24 hr 01/12/24 05:12 WBC 17.5 H RBC 4.82 Hgb 11.1 L Hct 35.1 L MCV 72.7 L MCH 22.9 L MCHC 31.5 RDW 16.2 H Plt Count 313 Neut % (Auto) 86.8 H Lymph % (Auto) 5.4 L [place] % (Auto) 6.8 Eos % (Auto) 0.7 L Baso % (Auto) 0.3 Neut # (Auto) 89902 H Lymph # (Auto) 900 L [place] # (Auto) 1200 H Eos # (Auto) 100 Baso # (Auto) 0 Sodium 136 L Potassium 4.0 Chloride 107 Carbon Dioxide 23 BUN 27 H Creatinine 1.11 H Estimated GFR 58 L BUN/Creatinine Ratio 24.3 H Glucose 145 H Calcium 8.7 Total Bilirubin 0.7 AST 24 ALT 42 H Alkaline Phosphatase 88 Total Protein 5.6 L Albumin 3.1 L Globulin 2.5 Albumin/Globulin Ratio 1.2 Lipase 1623 H D [facility] Social History household members: children Smoking Status: Former smoker alcohol intake: never eating out: 1-3 times/week Type(s) of exercise: none Assessment & Plan Assessment & Plan narrative: 1. Gallstone pancreatitis, present on admission and active. MRCP negative for CBD stones or obstruction. 2. Dm 2, insulin-dependent. Present on admission and active. 3. Hypertension, present on admission and active. 4. HLD, present on admission and active. 5. Morbid obesity with BMI 42, present on admission and active. Plan: -NPO -IV fluids -analgesics -no evidence of common bile duct stone, trend LFTs and lipase. These are improving rapidly. -Lantus unless admitted to control sugars. Anticipate NPO for 24-48 hours. Doses will be admitted as such. -monitor blood pressure. Time-Based Coding :: 20 min spent with patient and on the chart (including review of chart, obtaining history, exam, reviewing outside data, placing orders, documenting exam and treatment plan, and counseling patient) on 01/11.
[2024-01-12 08:00] VITALS: BP 147/69; PULSE 98; RESP 16; TEMP 37.8; O2SAT 94
[2024-01-12] MEDS: METOPROLOL IR 25 MG TABLET PO (08:44)
[2024-01-12] MEDS: HEPARIN 5,000 UNIT/ML VIAL 5000 UNIT SUBCUT (08:44)
[2024-01-12] MEDS: INSULIN GLARGINE 100 UNIT/ML 3ML PEN 15 UNIT SUBCUT (08:45)
[2024-01-12] MEDS: KETOROLAC 30 MG/ML VIAL 15 MG IV (08:56)
--- NOTE | 2024-01-12 10:18 | P.DS_ITS ---
History of Present Illness History of Present Illness Chief complaint: ABD Pain vomitting Narrative: From ED doctor: 58-year-old female with history of diabetes on insulin, hypertension, dyslipidemia on aspirin daily who presents with complaint of epigastric pain/right upper quadrant pain. Patient states she has had episodes on and off in the past she is seen her physician been told she has a sluggish gallbladder and has had CT imaging in the past which shows cholelithiasis. Patient states nothing seems to bring on the episode they typically last about 24 hours and then resolved. She had an episode last week and then woke up this morning at 1:30 a.m. and has had persistent pain since then. She states it does not radiate to any new locations. She states nothing seems to bring it on specifically. Nothing seems to make it better. She has not had any fevers she has had nausea and vomiting this morning. She denies any diarrhea or constipation. Denies any urinary symptoms. Patient states she is on insulin for diabetes, medication for hypertension and dyslipidemia. States allergies to adhesive tape and statins. States she has had orthopedic surgeries but no prior cardiac, pulmonary or abdominal surgeries. No tobacco, no regular alcohol, no recreational drugs. She is accompanied by her sister Additional information: Her pain and began about 1 in the morning. She felt fine yesterday. No dietary changes. She has had nausea and some vomiting as well. The pain is all epigastric without radiation to the shoulder back. She recounts many episodes of prior symptoms of short episodes of abdominal pain lasting hours to maybe a day. She states she was to have gallbladder attacks but then thought her gallbladder because he stopped for several years. Her new episodes of felt somewhat different with regard to pain location. She denies any blood per rectum, or diarrhea. No hematemesis. She also denies any urinary symptoms including dysuria, or hematuria. She has had some change of the smell of the urine recently but denies cloudiness. Discharge Providers Provider Date of admission: 01/10/24 11:35 Discharge Date: 01/12/24 Primary care physician: Mindi Nunes PA-C Consults: 01/10/24 11:01 Consult to General Surgery Stat Comment: Consulting Provider: Gisell Root Reason for consultation: pancreatitis Has provider been notified: Yes Discharge provider: Elliott Kenney MD Summary Hospital Course Discharge Diagnosis: 1. Gallstone pancreatitis, present on admission and improved. MRCP negative for CBD stones or obstruction. 2. Dm 2, insulin-dependent. Present on admission and active. 3. Hypertension, present on admission and active. 4. HLD, present on admission and active. 5. Morbid obesity with BMI 42, present on admission and active. Hospital Course: She was admitted with significant pancreatitis. She would evidence of gallstones on imaging but her common bile duct was clear by MRCP. She did have transiently elevated LFTs consistent with choledocholithiasis which had improved. She was treated conservatively with IV fluids, analgesics, and nothing by mouth. She was seen by surgery, and they recommended a delayed cholecystectomy in 2-3 weeks after resolution of pancreatitis. She improved to the point of being able to advance her diet and was felt to be stable for discharge home on January 11. Dr. Root of surgery will help with surgical follow up plans including scheduling her elective cholecystectomy. In addition, her Tanzeum we will be held for the time being as it has been implicated in pancreatitis. Her presentation is much more consistent with gallstone induced pancreatitis however. This can likely be restarted after her cholecystectomy. Creatinine is 1.11. Admission ALT was 113, improved to 42. Admission AST was 219, improved to 4, admission bilirubin is 1.4, improved to 0.7 Admission lipase 27,501, 7325 on day 2, 1623 on day of discharge. Status at Discharge Cognitive/behavioral status at discharge: at baseline, oriented Functional status at discharge: independent ambulation Overall status at discharge: patient is back to baseline Time Spent with Patient Time spent: Greater than 30 minutes Exam Vital Signs (past 8 hours): - 01/12/24 03:00 01/12/24 07:20 Pulse Rate 78 78 Respiratory Rate 20 16 Blood Pressure 150/78 H Pulse Oximetry 98 97 Oxygen Delivery Method Room Air Oxygen Delivery Method Room Air Oxygen Flow Rate 0 Narrative Exam Narrative: NAD, alert and oriented. Fluent speech. Lungs are clear, normal rate and effort. Heart is regular, no murmur gallop or rub. Abdomen is soft, non distended. Very minimal epigastric tenderness. Extremities are free of edema. Objective Imaging Multiple studies: : Radiologist's impression: Abdomen MRI (MRCP): Moderate acute interstitial pancreatitis without complication. Cholelithiasis without MR evidence of choledocholithiasis. Abdomen ultrasound: Cholelithiasis without evidence of acute cholecystitis. Labs 01/12/24 05:12 01/12/24 05:12 Labs: Laboratory Results - last 24 hr 01/12/24 05:12 WBC 17.5 H RBC 4.82 Hgb 11.1 L Hct 35.1 L MCV 72.7 L MCH 22.9 L MCHC 31.5 RDW 16.2 H Plt Count 313 Neut % (Auto) 86.8 H Lymph % (Auto) 5.4 L [place] % (Auto) 6.8 Eos % (Auto) 0.7 L Baso % (Auto) 0.3 Neut # (Auto) 29411 H Lymph # (Auto) 900 L [place] # (Auto) 1200 H Eos # (Auto) 100 Baso # (Auto) 0 Sodium 136 L Potassium 4.0 Chloride 107 Carbon Dioxide 23 BUN 27 H Creatinine 1.11 H Estimated GFR 58 L BUN/Creatinine Ratio 24.3 H Glucose 145 H Calcium 8.7 Total Bilirubin 0.7 AST 24 ALT 42 H Alkaline Phosphatase 88 Total Protein 5.6 L Albumin 3.1 L Globulin 2.5 Albumin/Globulin Ratio 1.2 Lipase 1623 H D [facility] Social History household members: children Smoking Status: Former smoker alcohol intake: never eating out: 1-3 times/week Type(s) of exercise: none Discharge Assessment & Plan Assessment and Plan Assessment: 1. Gallstone pancreatitis, present on admission and improved. MRCP negative for CBD stones or obstruction. Plan of Treatment: Discharge home with pain medications, slow diet advanced, and a delayed cholecystectomy in 2-[address] Root will help organize this step. Discharge Plan Discharge Plan Patient Disposition: Home Provider Discharge Comment: Stable for discharge home, we will be stopping Tanzeum. Sometimes can cause pancreatitis. Discharge orders & Medications Prescriptions: New oxycodone 5 mg Tablet 5 mg PO Q4HR PRN (Reason: Pain, Moderate (4-6)) Qty: 15 0RF Continued atorvastatin [Lipitor] 20 MG tablet 20 mg PO BEDTIME Qty: 30 ferrous fumarate 324 MG tablet 324 mg PO DAILY Qty: 0 levothyroxine [Synthroid] 125 MCG tablet 125 mcg PO DAILY Qty: 0 omeprazole-sodium bicarbonate [Zegerid OTC] 20 MG capsule 1 cap PO DAILY Qty: 0 lutein 10 MG tablet 25 mg PO DAILY Qty: 0 albuterol sulfate [Ventolin HFA] 90 mcg/actuation Hfa Aerosol Inhaler 1 puff INHALATION Q4-6H PRN (Reason: Shortness Of Breath) metoprolol tartrate 25 mg Tablet 25 mg PO BID Rx Instructions: (1.5) tab in am and 25 mg (1) tab at bedtime aspirin 81 mg tablet,delayed release (DR/EC) 81 mg PO DAILY isosorbide mononitrate 60 mg tablet extended release 24 hr 60 mg PO DAILY buspirone 15 mg tablet 22.5 mg PO ONCE PM fenofibrate micronized 43 mg capsule 43 mg PO DAILY Atrovent HFA 17 mcg/actuation HFA aerosol inhaler 2 puff INHALATION 4XD PRN (Reason: wheezing) Jardiance 10 mg tablet 10 mg PO DAILY insulin glargine U-300 conc [Toujeo SoloStar U-300 Insulin] 300 unit/mL (1.5 mL) insulin pen 70 unit SUBCUT DAILY Trulicity 4.5 mg/0.5 mL pen injector 4.5 mg SUBCUT WEEKLY fluticasone propion-salmeterol 115-21 mcg/actuation HFA aerosol inhaler 2 puff INHALATION BID Discontinued Tanzeum 50 MG/0.5 ML pen injector 50 mg SC QWEEK Qty: 0 Medication counseling provided by Pharmacist: No Follow up/Referrals: Gisell Root MD [Physician] - Mindi Nunes PA-C [Primary Care Provider] - Discharge Health Status Multidrug resistant organism: No MDRO Diet/Activity/Treatments Diet: Diet as Tolerated Visit Report/Discharge Packet Instructions: DI for Pancreatitis, DI for Prescription Opioid Use Stand Alone Forms: Patient Portal/API Discharge Data Primary Care Provider: Mindi Nunse Quality [facility] - [place] The patient has a history of heart transplant or Left Ventricular Assist Device (LVAD). If yes, STOP here.: No The patient has current or prior documentation of left ventricular ejection fraction (LVEF) less than or equal to 40%, or moderate or severely depressed left ventricular systolic function.: No
--- NOTE | 2024-01-12 11:10 | CM.DPC ---
DCP Cont. Reviewed EMR and team rounds for status updates. Pt has been medically cleared for home d/c, her sister will be transporting her back home. Per Hospitalist, her gallstone pancreatitis has resolved, and the plan is for her to f/u with [facility] to discuss next steps for OP gallbladder surgery within the next few weeks.
== END 2024-01-12 11:58 | disposition home or self-care (01) | DRG 439 ==
LOC: ED 11:34 → AC 11:35
PROVIDERS: Admitting Provider Hospitalist; Emergency Provider Emergency Medicine; Family Provider Family Medicine; PCP Physician Assistant; Referring Provider Emergency Medicine; Visit Provider Hospitalist
DX: K85.10 Biliary acute pancreatitis without necrosis or infection (principal); Z68.41 Body mass index [BMI] 40.0-44.9, adult; E66.01 Morbid (severe) obesity due to excess calories; E11.9 Type 2 diabetes mellitus without complications; I10 Essential (primary) hypertension; E78.5 Hyperlipidemia, unspecified; Z79.85 Long-term (current) use of injectable non-insulin antidiabetic drugs; Z79.4 Long term (current) use of insulin; Z79.84 Long term (current) use of oral hypoglycemic drugs; Z87.891 Personal history of nicotine dependence
CPT/HCPCS: 36415; 74183; 76705; 80053; 82962; 83036; 83690; 85025; 93005; 94640; 96374; 96375; 99232; 99284; A9579; J0360; J1170; J1644; J1815; J1885; J2270; J2405; J7613

== ENCOUNTER 2024-01-13 16:49 | Inpatient (IN) | payer OTHER, SELFPAY ==
[2024-01-10 12:53] VITALS: BMI 42.3
[2024-01-13] VITALS (8 sets, daily range): BP systolic 147–186; BP diastolic 67–88; PULSE 81–93; RESP 14–27; TEMP 36–39.1; O2SAT 94–96; BMI 42.3; BMI 43.7
--- NOTE | 2024-01-13 17:25 | DI.RAD.S_ITS ---
PROCEDURE: XR CHEST 1V INDICATIONS: suspected sepsis TECHNIQUE: One view of the chest was acquired. COMPARISON: None. FINDINGS: Surgical changes and devices: None. Lungs and pleura: Lungs are clear. No pleural effusions or pneumothorax. Mediastinum: Mediastinal contours appear normal. Heart size is normal. Bones and chest wall: No suspicious bony lesions. Overlying soft tissues appear unremarkable. IMPRESSION: No acute cardiopulmonary abnormality is seen. Dictated by: Ravi Heaton M.D. on 01/13/2024 at 18:05 Approved by: Ravi Heaton M.D. on 01/13/2024 at 18:05
--- NOTE | 2024-01-13 17:31 | EKG_ITS ---
[address] [address] Test Date: 2024-01-13 Pat Name: Deanna Molina Department: [facility] Room: Gender: Female Rag Inspector: FELIPE : 1965 Requested By: Order Number: [id number] Reading MD: Louie Messina Measurements Intervals [place] Rate: 94 P: 42 [place]: 142 QRS: 40 QRSD: 154 T: 17 QT: 370 QTc: 462 Interpretive Statements Normal sinus rhythm Left bundle branch block Electronically Signed On 01-14-2024 20:14:10 PDT by Louie Messina
[2024-01-13 17:36] LABS: Add Manual Diff / Slide Review NO; Basophils Absolute Auto 100 /uL (0-100); Basophils Percent Auto 0.5 % (0-2); Eosinophils Absolute Auto 200 /uL (0-450); Eosinophils Percent Auto 1.5 % (2-4); Hematocrit 34.4 % (36-46); Lymphocytes Absolute Auto 700 /uL (1100-4500); Lymphocytes Percent Auto 4.5 % (25-40); Mean Corpuscular Hemoglobin 23.3 PG (26-34); Mean Corpuscular Volume 72.7 fL (80-100); Monocytes Absolute Auto 800 /uL (0-900); Monocytes Percent Auto 5.3 % (3-14); Neutrophils Absolute Auto 13700 /uL (1500-7000); Neutrophils Percent Auto 88.2 % (50-75); Platelet Count 319 X10^3/uL (150-400); Red Blood Cell Count 4.73 X10^6/uL (4.0-5.2); Red Cell Distribution Width 15.3 % (11.6-14.8); White Blood Cell Count 15.5 X10^3/uL (4.5-11.0)
[2024-01-13] MEDS: SODIUM CHLORIDE 0.9% 1,000 ML 1000 ML IV (17:45)
[2024-01-13 18:01] LABS: INR 1.4 (0.9-1.3); Prothrombin Time 16.1 SECONDS (9.4-12.5)
[2024-01-13 18:04] LABS: PTT Partial Thromboplastin Tim 32 SECONDS (25.1-36.5)
[2024-01-13 18:07] LABS: Alanine Aminotransferase 27 IU/L (<35); Albumin 3.3 g/dL (3.5-5.0); Albumin Globulin Ratio 1.1 (1.0-2.8); Alkaline Phosphatase 104 U/L (38-126); Aspartate Aminotransferase 21 IU/L (14-36); BUN Creatinine Ratio 28.4 (6-22); Bilirubin Total 0.7 mg/dL (0.2-1.3); Blood Urea Nitrogen 23 mg/dL (7-17); Calcium 9.5 mg/dL (8.4-10.2); Carbon Dioxide 19 mmol/L (22-32); Chloride 101 mmol/L (98-107); Estimated Glomerular Filt Rate > 60 mL/min (>60); Globulin 2.9 g/dL (1.7-4.1); Glucose 130 mg/dL (70-100); HEMOLYSIS < 15 (0-50); Lipase 318 U/L (23-300); Potassium 4.3 mmol/L (3.4-5.1); Sodium 131 mmol/L (137-145); Total Protein 6.2 g/dL (6.3-8.2)
[2024-01-13 18:40] LABS: Lactate (Lactic Acid) 1.2 mmol/L (0.7-2.1)
--- NOTE | 2024-01-13 18:48 | ED_ITS ---
HPI - General Adult General Chief complaint: Abdominal Pain Stated complaint: returning patient abd px, fever Time Seen by Provider: 01/13/24 17:56 Source: patient Mode of arrival: Ambulatory Limitations: no limitations History of Present Illness HPI narrative: 58-year-old female who was discharged from the emergency department yesterday after an admission for acute pancreatitis. She stated that when she was discharged home she thought that she was told that she had a fever. She was tolerating oral intake prior to discharge her pain was relatively well controlled however since she was discharged home she has had return of the left upper quadrant pain. Nausea with eating or drinking. It was now developing fevers. Continues to have the upper abdominal pain consistent with her prior history of pancreatitis however she does admit that it is somewhat less today than what it has been. No change in bowel habits. Related Data Home Medications Medication Instructions Recorded Confirmed ferrous fumarate 324 mg (106 mg 324 mg PO DAILY ##0 12/31/15 01/13/24 iron) tablet levothyroxine 125 mcg tablet 125 mcg PO DAILY #0 tabs 12/31/15 01/13/24 (Synthroid) omeprazole 20 mg-sodium 1 cap PO DAILY ##0 12/31/15 01/13/24 bicarbonate 1.1 gram capsule (Zegerid OTC) lutein 10 mg tablet 25 mg PO DAILY oral ##0 02/12/16 01/13/24 albuterol sulfate 90 mcg/actuation 1 puff inhalation Q4-6H PRN 05/30/18 01/13/24 aerosol inhaler (Ventolin HFA) Shortness Of Breath metoprolol tartrate 25 mg tablet 25 mg PO BID 05/30/18 01/13/24 aspirin 81 mg tablet,delayed 81 mg PO DAILY 01/10/24 01/13/24 release buspirone 15 mg tablet 22.5 mg PO ONCE PM 01/10/24 01/13/24 dulaglutide 4.5 mg/0.5 mL 4.5 mg SUBCUT WEEKLY 01/10/24 01/13/24 subcutaneous pen injector (Trulicity) empagliflozin 10 mg tablet 10 mg PO DAILY 01/10/24 01/13/24 (Jardiance) fenofibrate micronized 43 mg 43 mg PO DAILY 01/10/24 01/13/24 capsule insulin glargine U-300 conc 300 70 unit SUBCUT DAILY 01/10/24 01/13/24 unit/mL (1.5 mL) subcutaneous pen (Toujeo SoloStar U-300 Insulin) ipratropium bromide 17 2 puff inhalation 4XD PRN wheezing 01/10/24 01/13/24 mcg/actuation HFA aerosol inhaler (Atrovent HFA) isosorbide mononitrate 60 mg 60 mg PO DAILY 01/10/24 01/13/24 tablet,extended release 24 hr fluticasone propionate 115 2 puff inhalation BID 01/11/24 01/13/24 mcg-salmeterol 21 mcg/actuation HFA inhaler Previous Rx's Medication Instructions Recorded oxycodone 5 mg tablet 5 mg PO Q4HR PRN Pain, Moderate 01/12/24 (4-6) #15 tabs Allergies Allergy/AdvReac Type Severity Reaction Status Date / Time adhesive tape [ADHESIVE TAPE] Allergy Unknown BLISTERS Verified 01/10/24 09:31 AND PEELING simvastatin [SIMVASTATIN] AdvReac Unknown MUSCLE Verified 01/10/24 09:31 CRAMPS Review of Systems Review of Systems ROS Unobtainable: All systems reviewed & are unremarkable except as noted in HPI and below Patient History Social History household members: children Smoking Status: Former smoker alcohol intake: never eating out: 1-3 times/week Type(s) of exercise: none Smoking Status: Former smoker alcohol intake frequency: 0-2 drinks per day Substance Use Type: does not use Exam Initial Vital Signs Initial Vital Signs: Vital Signs Temperature 99.2 F 01/13/24 17:05 Pulse Rate 93 H 01/13/24 17:05 Respiratory Rate 14 01/13/24 17:05 Blood Pressure 167/76 H 01/13/24 17:05 Pulse Oximetry 95 01/13/24 17:05 Oxygen Delivery Method Room Air 01/13/24 17:05 Const General: cooperative, comfortable and No ill appearing HENMT Head: normal to inspection and normocephalic Resp Effort & Inspection: normal respiratory effort Auscultation: clear to auscultation bilaterally Cardio Rate: regular rate Rhythm: regular rhythm GI Inspection: normal to inspection and non-distended Palpation: soft and tender (Left upper quadrant) Skin General: no rashes or lesions noted Neuro General: patient alert, patient awake and moves all extremities Extrem General: capillary refill normal Course Orders Ordered: ED Orders 01/13/24 17:45 Blood Culture Stat 01/13/24 18:17 Lactate (Lactic Acid) Stat 01/13/24 18:50 CT abdomen pelvis w con Stat 01/13/24 19:24 Urine Microscopic Stat Albuterol (Albuterol 2.5 Mg/3 Ml Neb (Adult)) 2.5 mg INH Q2H PRN PRN Reason: Dyspnea Albuterol (Albuterol 2.5 Mg/3 Ml Neb (Adult)) 2.5 mg INH [id number] [facility] Aspirin (Aspirin Ec 81 Mg Tablet) 81 mg PO DAILY [facility] Budesonide (Budesonide 0.5 Mg/2 Ml Neb) 0.5 mg INH RTBID [facility] Buspirone HCl (Buspirone 5 Mg Tablet) 22.5 mg PO BEDTIME [facility] Last Admin: 01/13/24 21:59 Dose: 22.5 mg Documented By: SR Calcium Carbonate (Calcium Carbonate 500 Mg Tab) 1,000 mg PO Q4HR PRN PRN Reason: Dyspepsia Fenofibrate (Fenofibrate, Micronized 67 Mg Capsule) 67 mg PO DAILY [facility] Ferrous Sulfate (Ferrous Sulfate 325 Mg Tablet) 325 mg PO DAILY [facility] Hydralazine HCl (Hydralazine 20 Mg/Ml Vial) 10 mg IV Q6HR PRN PRN Reason: SBP>= 160 or DBP >=110 Sodium Chloride (Normal Saline 0.9%) 1,000 mls @ 100 mls/hr IV CONT [facility] Last Admin: 01/13/24 22:01 Dose: 100 mls/hr Documented By: SR Piperacillin Sod/Tazobactam (Sod 3.375 gm/ Sodium Chloride) 100 mls @ 25 mls/hr IV Q8H [facility] Last Admin: 01/13/24 22:02 Dose: 25 mls/hr Documented By: SR Insulin Glargine (Insulin Glargine 100 Unit/Ml 3ml Pen) 56 unit SUBCUT DAILY [facility] Ipratropium [place] (Ipratropium 0.5 Mg/2.5 Ml Neb) 0.5 mg INH Q6H PRN PRN Reason: Wheezing Isosorbide Mononitrate (Isosorbide Mononitrate Er 30 Mg Tablet) 60 mg PO DAILY [facility] Levothyroxine Sodium (Levothyroxine 125 Mcg Tablet) 125 mcg PO 0600 [facility] Metoprolol Tartrate (Metoprolol Ir 25 Mg Tablet) 25 mg PO BID [facility] Last Admin: 01/13/24 21:58 Dose: 25 mg Documented By: SR Morphine Sulfate (Morphine 4 Mg/Ml Inj) 4 mg IV Q4HR PRN PRN Reason: Pain, Severe (7-10) Last Admin: 01/13/24 23:06 Dose: 4 mg Documented By: SR Naloxone HCl (Naloxone 0.4 Mg/Ml Vial) 0.2 mg IV Q2MIN PRN PRN Reason: Opiate Reversal (Empagliflozin [ Jardiance] 10 Mg Tablet) 10 mg PO DAILY [facility] (Lutein 10 Mg Tablet ()) 25 mg PO DAILY [facility] Non-Formulary Medication (Omeprazole-Sodium Bicarbonate [Zegerid Otc]) 1 cap PO DAILY [facility] Ondansetron HCl (Ondansetron 4 Mg/2 Ml Inj) 4 mg IV NOW PRN PRN Reason: Nausea And Vomiting Last Admin: 01/13/24 18:54 Dose: 4 mg Documented By: PATITO Ondansetron HCl (Ondansetron 4 Mg Odt) 4 mg PO NOW PRN PRN Reason: Nausea And Vomiting Ondansetron HCl (Ondansetron 4 Mg/2 Ml Inj) 4 mg IV Q8HR PRN PRN Reason: Nausea And Vomiting Ondansetron HCl (Ondansetron 4 Mg Odt) 4 mg PO Q8HR PRN PRN Reason: Nausea And Vomiting Oxycodone HCl (Oxycodone Ir 5 Mg Tablet) 5 mg PO Q4HR PRN PRN Reason: Pain, Moderate (4-6) Last Admin: 01/14/24 00:46 Dose: 5 mg Documented By: SR Pantoprazole Sodium (Pantoprazole Dr 20 Mg Tablet) 20 mg PO 0600 [facility] Promethazine HCl (Promethazine 12.5 Mg Supp) 12.5 mg IA Q6HR PRN PRN Reason: Nausea And Vomiting Discontinued Medications Albuterol (Albuterol Hfa Mdi 60 Puff/8 Gm Inhaler) 1 puff INH Q4-6H PRN PRN Reason: Shortness Of Breath Albuterol (Albuterol 2.5 Mg/3 Ml Neb (Adult)) 2.5 mg INH [id number] PRN PRN Reason: Dyspnea Albuterol (Albuterol 2.5 Mg/3 Ml Neb (Adult)) 2.5 mg INH Q4HRWA [facility] Atorvastatin Calcium (Atorvastatin 20 Mg Tablet) 20 mg PO BEDTIME [facility] Last Admin: 01/13/24 22:13 Dose: Not Given Documented By: SR Hydromorphone HCl (Hydromorphone 0.5 Mg Inj) 0.5 mg IV Q2H PRN PRN Reason: Pain, Severe (7-10) Sodium Chloride (Normal Saline 0.9%) 1,000 mls @ 1,000 mls/hr IV BOLUS ONE Stop: 01/13/24 18:24 Last Infusion: 01/13/24 18:40 Dose: Infused Documented By: Admin: 01/13/24 17:45 Dose: 1,000 mls/hr Documented By: PATITO Ceftriaxone Sodium 1,000 mg/ (Sodium Chloride) 100 mls @ 200 mls/hr IV NOW ONE Stop: 01/13/24 19:50 Last Infusion: 01/13/24 20:45 Dose: Infused Documented By: Admin: 01/13/24 20:03 Dose: 200 mls/hr Documented By: PATITO Acetaminophen (Ofirmev) 1,000 mg in 100 mls @ 400 mls/hr IV NOW ONE Stop: 01/13/24 20:03 Last Infusion: 01/13/24 20:27 Dose: Infused Documented By: Admin: 01/13/24 20:02 Dose: 400 mls/hr Documented By: PATITO Morphine Sulfate (Morphine 4 Mg/Ml Inj) 4 mg IV NOW ONE Stop: 01/13/24 18:49 Last Admin: 01/13/24 18:54 Dose: 4 mg Documented By: PATITO Morphine Sulfate (Morphine 4 Mg/Ml Inj) 4 mg IV Q4HR [facility] Vital Signs Vital signs: Vital Signs - 8 hr 01/13/24 19:45 Temperature 102.4 F H Medical Decision Making Medical Records Medical records reviewed: Yes I reviewed the patient's medical records. Lab Data Lab results reviewed: Yes I reviewed the patient's lab results. 01/13/24 17:22 01/13/24 17:22 Labs: Lab Results 01/13/24 01/13/24 01/13/24 Range/Units 17:22 18:17 19:24 WBC 15.5 H (4.5-11.0) X10^3/uL RBC 4.73 (4.0-5.2) X10^6/uL Hgb 11.0 L (12.0-16.0) g/dL Hct 34.4 L (36-46) % MCV 72.7 L (80-100) fL MCH 23.3 L (26-34) PG MCHC 32.0 (30-36) % RDW 15.3 H (11.6-14.8) % Plt Count 319 (150-400) X10^3/uL Neut % (Auto) 88.2 H (50-75) % Lymph % (Auto) 4.5 L (25-40) % [place] % (Auto) 5.3 (3-14) % Eos % (Auto) 1.5 L (2-4) % Baso % (Auto) 0.5 (0-2) % Neut # (Auto) 83356 H (5780-9358) /uL Lymph # (Auto) 700 L (2732-5345) /uL [place] # (Auto) 800 (0-900) /uL Eos # (Auto) 200 (0-450) /uL Baso # (Auto) 100 (0-100) /uL PT 16.1 H (9.4-12.5) SECONDS INR 1.4 H (0.9-1.3) APTT 32 (25.1-36.5) SECONDS Sodium 131 L (137-145) mmol/L Potassium 4.3 (3.4-5.1) mmol/L Chloride 101 (98-107) mmol/L Carbon Dioxide 19 L (22-32) mmol/L BUN 23 H (7-17) mg/dL Creatinine 0.81 (0.52-1.04) mg/dL Estimated GFR > 60 (>60) mL/min BUN/Creatinine Ratio 28.4 H (6-22) Glucose 130 H (70-100) mg/dL Lactate 1.2 (0.7-2.1) mmol/L Calcium 9.5 (8.4-10.2) mg/dL Total Bilirubin 0.7 (0.2-1.3) mg/dL AST 21 (14-36) IU/L ALT 27 (<35) IU/L Alkaline Phosphatase 104 (38-126) U/L Total Protein 6.2 L (6.3-8.2) g/dL Albumin 3.3 L (3.5-5.0) g/dL Globulin 2.9 (1.7-4.1) g/dL Albumin/Globulin Ratio 1.1 (1.0-2.8) Lipase 318 H D (23-300) U/L Procalcitonin 0.200 (<0.5) ng/mL Urine RBC None seen (0-5/HPF) Urine WBC 1-5/hpf (0-5/HPF) Ur Squamous Epith Cells 5-10 /hpf H (0-5/HPF) Urine Bacteria Few (2-10) H (None) Ur Culture Indicated? Specimen cultured Vol Urine Centrifuged 10ml (spun) Urine Dip Bedside Urine Glucose 1000 mg/dl Bedside Urine Bilirubin - Negative Bedside Urine Ketone ++ 40 Urine Specific [place] 1.025 Bedside Urine Occult Blood ++ Bedside Urine pH 5.0 Bedside Urine Protein + 30 Bedside Urine Urobilinogen - Negative Bedside Urine Nitrite + Positive Bedside Urine Leukocytes - Negative Esterase Point of care testing: Urine Dip Bedside Urine Glucose 1000 mg/dl Bedside Urine Bilirubin - Negative Bedside Urine Ketone ++ 40 Urine Specific [place] 1.025 Bedside Urine Occult Blood ++ Bedside Urine pH 5.0 Bedside Urine Protein + 30 Bedside Urine Urobilinogen - Negative Bedside Urine Nitrite + Positive Bedside Urine Leukocytes - Negative Esterase Imaging Data Chest x-ray: Radiologist's Impression: PROCEDURE: XR CHEST 1V INDICATIONS: suspected sepsis TECHNIQUE: One view of the chest was acquired. COMPARISON: None. FINDINGS: Surgical changes and devices: None. Lungs and pleura: Lungs are clear. No pleural effusions or pneumothorax. Mediastinum: Mediastinal contours appear normal. Heart size is normal. Bones and chest wall: No suspicious bony lesions. Overlying soft tissues appear unremarkable. IMPRESSION: No acute cardiopulmonary abnormality is seen. CT scan - abdomen/pelvis: Radiologist's Impression: PROCEDURE: CT ABDOMEN PELVIS W CON INDICATIONS: Recent diagnosis of pancreatitis, continued/worsening abdomi TECHNIQUE: After the administration of intravenous contrast, axial sections acquired from the lung bases to the pubic symphysis. Coronal and sagittal reformats were performed. For radiation dose reduction, the following was used: automated exposure control, adjustment of mA and/or kV according to patient size. COMPARISON: MR abdomen 01/10/2024, CT abdomen 10/13/2023. FINDINGS: Image quality: Diagnostic. Lower Chest: Small bilateral pleural effusions with subjacent atelectasis ABDOMEN: Liver: No solid mass. Hepatomegaly. Gallbladder: Cholelithiasis. No abnormal wall thickening. Biliary ducts: No biliary dilation. Pancreas: Marked diffuse enlargement of the pancreatic body and tail with surrounding fat stranding and inflammation consistent with acute interstitial pancreatitis. Trace fluid extending along the right renal fascia and possibly along the greater curvature of the stomach. No rim enhancing fluid collection to suggest abscess or walled-off necrosis. No definite areas of hypoenhancement to suggest necrosis. Inflammatory changes involve the duodenum. Spleen: Splenomegaly. Adrenal Glands: Right adrenal adenoma, previously characterized on adenoma protocol CT 11/11/2023. Kidneys and Ureters: No hydronephrosis. No solid mass. No complex renal cystic lesion which requires follow up. Stomach and Bowel: Normal colonic caliber, without significant wall thickening. Peritoneum: No abnormal intraperitoneal fluid. No free air. Ventral Wall: No significant ventral hernia. Abdominal Nodes: No retroperitoneal or mesenteric adenopathy by size criteria. Vessels: Aorta and inferior vena cava are normal in size. PELVIS: Pelvic Organs: Unremarkable. Bladder: No bladder wall thickening, accounting for underdistention. Pelvic Nodes: No enlarged lymph nodes. Miscellaneous: No inguinal hernias are seen. Bones: No aggressive osseous abnormality. IMPRESSION: Acute interstitial pancreatitis with inflammatory changes and trace fluid extending to the right renal fascia and along the greater curvature of the stomach. No hypoenhancement to suggest necrosis. No peripancreatic abscess or walled-off necrosis. ECG Data Attestation: I personally reviewed and interpreted this ECG as follows: Interpretation: Sinus rhythm Ventricular rate 94 Normal axis Left bundle-branch block No ST T wave changes MDM Narrative Medical decision making narrative: She does have an improvement of her lipase. Does have a leukocytosis. Has a nitrite positive urine but does not have any UTI like symptoms. Cultures were obtained. LFTs and bilirubin unremarkable. CT scan shows an acute pancreatitis without signs of abscess. Given her presentation today patient does require admission to the hospital for further evaluation and treatment. Discussed the case with Dr. Jeffers hospitalist on-call who will admit. Discussed the need for admission for the patient. She expressed understanding and agreement with plan. Discharge Plan Departure Patient Disposition: Admitted As Inpatient Clinical Impression: Pancreatitis, Cholelithiasis Admit Date/Time: 01/13/24 20:42 Admit Provider: Ashish Jeffers
[2024-01-13] MEDS: MORPHINE 4 MG/ML INJ IV ×2 (18:54→23:06)
[2024-01-13] MEDS: ONDANSETRON 4 MG/2 ML INJ IV (18:54)
[2024-01-13] MEDS: ACETAMINOPHEN IV 1,000 MG/100 ML VIAL 400 MG IV (20:02)
[2024-01-13] MEDS: cefTRIAXone 1,000 MG in SODIUM CHLORIDE 0.9% 100 ML 200 MG IV (20:03)
[2024-01-13 20:08] LABS: Urine Volume 10mL (spun)
[2024-01-13 20:09] LABS: Bacteria Urine Few (2-10); Culture Indicated Urine Specimen Cultured; RBC Urine None Seen (0-5/HPF); Squamous Epithelial Cell Urine 5-10 /HPF (0-5/HPF); WBC Urine 1-5/HPF (0-5/HPF)
[2024-01-13] MEDS: METOPROLOL IR 25 MG TABLET PO (21:58)
[2024-01-13] MEDS: BUSPIRONE 5 MG TABLET 22.5 MG PO (21:59)
[2024-01-13] MEDS: SODIUM CHLORIDE 0.9% 1,000 ML 100 ML IV (22:01)
[2024-01-13] MEDS: PIPERACILLIN/TAZO 3.375 GM in SODIUM CHLORIDE 0.9% 100 ML IV (22:02)
--- NOTE | 2024-01-13 23:38 | P.HP_ITS ---
History of Present Illness History of Present Illness Chief complaint: returning patient abd px, fever Narrative: 58 years old female with history of insulin-dependent diabetes, hypertension, hyperlipidemia, COPD, hypothyroidism, GERD presented to the ER with upper epigastric abdominal pain and intermittent fever up to 101. The patient was discharge yesterday admitted for acute pancreatitis. MRCP was done and there was no any evidence of gallstone. Her LFTs were consistent for choledocholithiasis which improved and she was treated conservatively with IV fluids, analgesics and NPO. She was seen by surgery and was recommended elective cholecystectomy after resolution of pancreatitis. The patient denies any nausea, vomiting, diarrhea, constipation, shortness of breath or cough. Abdominal CT scan shows acute interstitial pancreatitis with moderate changes and no hyperenhancement to suggest necrosis abscess or walled off necrosis. Laboratory shows WBC 15.5 from 17.5, glucose 130, lactate 1.2, LFTs normal, lipase 389 from 1600, UA was negative for UTI. She was given Tylenol, ceftriaxone 1 g IV, morphine and fluid bolus. [facility] Social History household members: children Smoking Status: Former smoker alcohol intake: never eating out: 1-3 times/week Type(s) of exercise: none Meds Home Medications and Allergies Home Medications Medication Instructions Recorded Confirmed Type ferrous fumarate 324 mg (106 mg 324 mg PO DAILY ##0 12/31/15 01/13/24 History iron) tablet levothyroxine 125 mcg tablet 125 mcg PO DAILY #0 tabs 12/31/15 01/13/24 History (Synthroid) omeprazole 20 mg-sodium 1 cap PO DAILY ##0 12/31/15 01/13/24 History bicarbonate 1.1 gram capsule (Zegerid OTC) lutein 10 mg tablet 25 mg PO DAILY oral ##0 02/12/16 01/13/24 History albuterol sulfate 90 mcg/actuation 1 puff inhalation Q4-6H PRN 05/30/18 01/13/24 History aerosol inhaler (Ventolin HFA) Shortness Of Breath metoprolol tartrate 25 mg tablet 25 mg PO BID 05/30/18 01/13/24 History aspirin 81 mg tablet,delayed 81 mg PO DAILY 01/10/24 01/13/24 History release buspirone 15 mg tablet 22.5 mg PO ONCE PM 01/10/24 01/13/24 History dulaglutide 4.5 mg/0.5 mL 4.5 mg SUBCUT WEEKLY 01/10/24 01/13/24 History subcutaneous pen injector (Trulicity) empagliflozin 10 mg tablet 10 mg PO DAILY 01/10/24 01/13/24 History (Jardiance) fenofibrate micronized 43 mg 43 mg PO DAILY 01/10/24 01/13/24 History capsule insulin glargine U-300 conc 300 70 unit SUBCUT DAILY 01/10/24 01/13/24 History unit/mL (1.5 mL) subcutaneous pen (Toujeo SoloStar U-300 Insulin) ipratropium bromide 17 2 puff inhalation 4XD PRN wheezing 01/10/24 01/13/24 History mcg/actuation HFA aerosol inhaler (Atrovent HFA) isosorbide mononitrate 60 mg 60 mg PO DAILY 01/10/24 01/13/24 History tablet,extended release 24 hr fluticasone propionate 115 2 puff inhalation BID 01/11/24 01/13/24 History mcg-salmeterol 21 mcg/actuation HFA inhaler oxycodone 5 mg tablet 5 mg PO Q4HR PRN Pain, Moderate 01/12/24 01/13/24 Rx (4-6) #15 tabs Allergies Allergy/AdvReac Type Severity Reaction Status Date / Time adhesive tape [ADHESIVE TAPE] Allergy Unknown BLISTERS Verified 01/10/24 09:31 AND PEELING simvastatin [SIMVASTATIN] AdvReac Unknown MUSCLE Verified 01/10/24 09:31 CRAMPS Review of Systems Review of Systems ROS: Yes All systems reviewed with the patient and are negative except as otherwise documented Constitutional Constitutional: Reports as per HPI and Reports system reviewed and no additional complaints, except as documented Eyes Eyes: Reports as per HPI and Reports system reviewed and no additional complaints, except as documented ENT Ears, Nose, Mouth, and Throat: Yes as per HPI and Yes system reviewed and no additional complaints, except as documented Cardiovascular Cardiovascular: Reports system reviewed and no additional complaints, except as documented Respiratory Respiratory: Reports system reviewed and no additional complaints, except as documented Gastrointestinal Gastrointestinal: Reports system reviewed and no additional complaints, except as documented Genitourinary Genitourinary: Reports system reviewed and no additional complaints, except as documented Musculoskeletal Musculoskeletal: Reports system reviewed and no additional complaints, except as documented, Reports abnormal gait and Reports numbness Neurologic Neurologic: Reports system reviewed and no additional complaints, except as documented, Reports abnormal gait, Reports confusion and Reports numbness Psychiatric Psychiatric: Reports system reviewed and no additional complaints, except as documented and Reports confusion Exam Vital Signs (past 8 hours): - 01/13/24 17:05 01/13/24 17:35 01/13/24 17:35 Temperature 99.2 F Pulse Rate 93 H 90 Respiratory Rate 14 17 Blood Pressure 167/76 H 186/88 H Pulse Oximetry 95 95 Oxygen Delivery Method Room Air Oxygen Flow Rate 01/13/24 18:00 01/13/24 18:02 01/13/24 18:02 Temperature Pulse Rate 84 85 Respiratory Rate 24 20 Blood Pressure 171/78 H Pulse Oximetry 96 96 Oxygen Delivery Method Oxygen Flow Rate 01/13/24 19:45 01/13/24 20:43 01/13/24 21:00 Temperature 102.4 F H Pulse Rate 86 82 Respiratory Rate 21 27 H Blood Pressure Pulse Oximetry 95 94 Oxygen Delivery Method Oxygen Flow Rate 01/13/24 21:00 01/13/24 21:20 Temperature 96.8 F L Pulse Rate 81 Respiratory Rate 20 Blood Pressure 156/67 H 147/67 H Pulse Oximetry 95 Oxygen Delivery Method Oxygen Flow Rate 0 Oxygen Delivery Method Room Air Oxygen Flow Rate 0 Const General: cooperative, comfortable and well developed Orientation: alert and oriented x3 HENMT Head: normal to inspection, normocephalic and atraumatic Face and sinus: normal facial exam Mouth: oral mucosae normal and moist mucous membranes Throat: posterior oropharynx normal Eyes General: appearance normal, both eyes and all related structures Pupils: PERRL EOM: EOM intact bilaterally Neck Neck: normal visual inspection and full ROM Chest Chest: normal inspection of the chest Resp Effort & Inspection: normal respiratory effort and able to speak in complete sentences Auscultation: clear to auscultation bilaterally Cardio Palpation: normal PMI Rate: regular rate Rhythm: regular rhythm Heart Sounds: S1 normal and S2 normal GI Inspection: normal to inspection Palpation: soft and no hepatosplenomegaly Auscultation: normal bowel sounds Skin General: no rashes or lesions noted Lesions: no lesions Rashes: no rashes Trauma: no lacerations or abrasions Neuro General: patient alert, patient awake, patient oriented x3 and no focal motor deficits Cranial Nerves: CN's II-XI intact bilaterally Cognition: normal cognition Speech: speech normal Gait: normal gait Motor: muscle tone normal throughout Sensory Exam: no sensory deficits noted Extrem General: full ROM and no calf tenderness Psych Appearance: grossly normal Mental Status: mental status grossly normal Speech and Movement: speech and movement normal Objective Labs 01/13/24 17:22 01/13/24 17:22 Labs: Laboratory Results - last 24 hr 01/13/24 01/13/24 01/13/24 17:22 18:17 19:24 WBC 15.5 H RBC 4.73 Hgb 11.0 L Hct 34.4 L MCV 72.7 L MCH 23.3 L MCHC 32.0 RDW 15.3 H Plt Count 319 Neut % (Auto) 88.2 H Lymph % (Auto) 4.5 L [place] % (Auto) 5.3 Eos % (Auto) 1.5 L Baso % (Auto) 0.5 Neut # (Auto) 35757 H Lymph # (Auto) 700 L [place] # (Auto) 800 Eos # (Auto) 200 Baso # (Auto) 100 PT 16.1 H INR 1.4 H APTT 32 Sodium 131 L Potassium 4.3 Chloride 101 Carbon Dioxide 19 L BUN 23 H Creatinine 0.81 Estimated GFR > 60 BUN/Creatinine Ratio 28.4 H Glucose 130 H Lactate 1.2 Calcium 9.5 Total Bilirubin 0.7 AST 21 ALT 27 Alkaline Phosphatase 104 Total Protein 6.2 L Albumin 3.3 L Globulin 2.9 Albumin/Globulin Ratio 1.1 Lipase 318 H D Procalcitonin 0.200 Urine RBC None seen Urine WBC 1-5/hpf Ur Squamous Epith Cells 5-10 /hpf H Urine Bacteria Few (2-10) H Ur Culture Indicated? Specimen cultured Vol Urine Centrifuged 10ml (spun) Assessment & Plan Assessment & Plan narrative: Acute pancreatitis with trending down of lipase and WBC. LFTs normalized. The patient developed fever which might be part of acute pancreatitis or secondary bacterial infection. -Will start Zosyn IV until blood cultures results -Keep n.p.o. -IV fluids -Analgesics Diabetes mellitus type 2, insulin-dependent. Restart home insulin, SSI Hyperlipidemia. According to the patient is allergic to statins. Will continue with gemfibrozil Morbidly obese. Encourage low caloric diet. Time-Based Coding :: [TOTAL MINUTES] spent with patient and on the chart (including review of chart, obtaining history, exam, reviewing outside data, placing orders, documenting exam and treatment plan, and counseling patient) on [DATE]. Quality VTE Deep Vein Thrombosis/Pulmonary Embolism Present on Admission: No MIPS - Admit I confirm the patient?s Advance Care Plan is present, Code status is documented, Surrogate decision maker is in patient?s record [If Yes, STOP here]: Yes MIPS - Meds 'Current medications' to include all prescriptions, [id number] products, herbals, cannabis/cannabidiol products, and vitamin/mineral/dietary (nutritional) supplements. I have utilized all available resources to obtain, update, or review the patient?s current medications. [If Yes, STOP here]: Yes
[2024-01-14] VITALS (7 sets, daily range): BP systolic 127–144; BP diastolic 63–83; PULSE 65–77; RESP 16–20; TEMP 36.3–38.2; O2SAT 94–98
[2024-01-14] MEDS: OXYCODONE IR 5 MG TABLET PO ×5 (00:46→20:30)
[2024-01-14] MEDS: MORPHINE 4 MG/ML INJ IV (04:24)
[2024-01-14] MEDS: PIPERACILLIN/TAZO 3.375 GM in SODIUM CHLORIDE 0.9% 100 ML IV ×3 (04:24→20:31)
[2024-01-14] MEDS: PANTOPRAZOLE DR 20 MG TABLET PO (06:13)
[2024-01-14] MEDS: LEVOTHYROXINE 125 MCG TABLET PO (06:13)
[2024-01-14] MEDS: ACETAMINOPHEN 325 MG TABLET 650 MG PO ×4 (06:33→20:25)
[2024-01-14 08:54] LABS: Alanine Aminotransferase 19 IU/L (<35); Albumin 2.7 g/dL (3.5-5.0); Alkaline Phosphatase 105 U/L (38-126); Aspartate Aminotransferase 17 IU/L (14-36); BUN Creatinine Ratio 25.9 (6-22); Bilirubin Total 0.6 mg/dL (0.2-1.3); Blood Urea Nitrogen 21 mg/dL (7-17); Calcium 8.7 mg/dL (8.4-10.2); Carbon Dioxide 21 mmol/L (22-32); Chloride 105 mmol/L (98-107); Estimated Glomerular Filt Rate > 60 mL/min (>60); Globulin 2.6 g/dL (1.7-4.1); Glucose 131 mg/dL (70-100); HEMOLYSIS < 15 (0-50); Magnesium 1.8 mg/dL (1.6-2.3); Potassium 3.9 mmol/L (3.4-5.1); Sodium 133 mmol/L (137-145); Total Protein 5.3 g/dL (6.3-8.2)
[2024-01-14] MEDS: ASPIRIN EC 81 MG TABLET PO (10:19)
[2024-01-14] MEDS: FENOFIBRATE, MICRONIZED 67 MG CAPSULE PO (10:19)
[2024-01-14] MEDS: METOPROLOL IR 25 MG TABLET PO ×2 (10:19→20:27)
[2024-01-14] MEDS: ISOSORBIDE MONONITRATE ER 30 MG TABLET 60 MG PO (10:19)
[2024-01-14] MEDS: FERROUS SULFATE 325 MG TABLET PO (10:20)
[2024-01-14] MEDS: ALBUTEROL 2.5 MG/3 ML NEB (ADULT) INH (10:25)
[2024-01-14] MEDS: BUDESONIDE 0.5 MG/2 ML NEB INH ×2 (10:25→20:10)
--- NOTE | 2024-01-14 11:28 | PC.NURSE ---
Addendum entered by Lizzy King R.N. 01/14/24 15:44: Patient just asked for pain medication for discomfort of 5/10 pain. Given tylenol and oxycodone and helpful to patient. She is visiting with her sister still. Original Note: Patient given oxycodone for discomfort with some tylenol, temp 98. She has been up a couple of times to go to the restroom and she is ambulating well. IVF infusing and patient tolerating this well. She is resting now and remains NPO.
--- NOTE | 2024-01-14 11:43 | CM.DANOTE ---
DCP Assessment Note: Pt is a 58yo female, resident of [place], is admitted for acute pancreatitis. Pt lives in a mobile home with her adult disabled son. Pt's Primary Care Provider is Mindi Nunes PA-C and insurance is [facility]. Reviewed chart and team rounds for pt's medical status and initial discharge needs. DCP met w/patient at bedside; introduced self and role. Patient was found in bed, alert and oriented, cooperative with assessment. Pt confirmed living situation as primary caregiver for her adult disabled son. Pt expressed preference in having the surgery as soon as possible to assist with pain but understandable that she might not able to have surgery for another 3 weeks. Patient wishes to return home as soon as possible to continue her caregiving duties. Plan: Anticipating discharge home with sister when pain managed, scheduling for surgery is pending. No discharge needs identified. CM team will follow closely for coordination of discharge plans. KATH Burrows Discharge Planning/Care Management CM Discharge Assessment Start: 01/14/24 11:42 Freq: Status: Active Protocol: Document 01/14/24 11:42 MW (Rec: 01/14/24 11:43 MW [id number]) Discharge Planning Assessment Assigned Ground Support Equipment Assembler MALA Arnett DPOA/Assigned Designee Name Sister Da Silva Contact Information [phone] Advance Directives? No History Provided By Patient,Medical Record Has Patient been admitted in last 30 Yes days? Comment Patient was admitted on 01/09- for similar symptoms. Prior Living Arrangements Mobile home Household Members children Type of transporation used prior to Drives own vehicle admit Independent with ADL's Yes Is patient alert and oriented? Yes Caregiver for Another Yes: Patient primary CG for adult disabled son. DME Already Rented / Owned Nebulizer Comment CPAP Barriers to Discharge No Discharge Plan Home Transportation Arrangement Sister Referrals Initiated None needed Whiteboard Updated in Patient Room with Yes name and ext. # of Ground Support Equipment Assembler Comment [phone] Review Status In Process Please Provide Date Initial DC 01/14/24 Assessment Was Performed Next Review Type Continued Stay Review
[2024-01-14] MEDS: INSULIN GLARGINE 100 UNIT/ML 3ML PEN 35 UNIT SUBCUT (12:46)
--- NOTE | 2024-01-14 16:07 | P.PN_ITS ---
Subjective Subjective Interval history: 58 F admitted with recurrent abdominal pain, presumably from gallstone pancreatitis, which is possibly now infected, also possible acute cystitis. She does want to try some liquids, but has not been able to tolerate much more than this so far. She does endorse some urinary frequency but no burning. Exam Vital Signs (past 8 hours): - 01/14/24 10:38 Pulse Rate 72 Respiratory Rate 16 Pulse Oximetry 94 Oxygen Delivery Method Room Air Oxygen Delivery Method Room Air Oxygen Flow Rate 0 Narrative Exam Narrative: NAD, alert and oriented. Fluent speech. Lungs are clear, normal rate and effort. Heart is regular, no murmur gallop or rub. Abdomen is soft, non distended. There is general epigastric tenderness without guarding or rebound. Extremities are free of edema. Objective Labs 01/13/24 17:22 01/14/24 08:20 Labs: Laboratory Results - last 24 hr 01/13/24 01/13/24 01/13/24 17:22 18:17 19:24 WBC 15.5 H RBC 4.73 Hgb 11.0 L Hct 34.4 L MCV 72.7 L MCH 23.3 L MCHC 32.0 RDW 15.3 H Plt Count 319 Neut % (Auto) 88.2 H Lymph % (Auto) 4.5 L [place] % (Auto) 5.3 Eos % (Auto) 1.5 L Baso % (Auto) 0.5 Neut # (Auto) 81531 H Lymph # (Auto) 700 L [place] # (Auto) 800 Eos # (Auto) 200 Baso # (Auto) 100 PT 16.1 H INR 1.4 H APTT 32 Sodium 131 L Potassium 4.3 Chloride 101 Carbon Dioxide 19 L BUN 23 H Creatinine 0.81 Estimated GFR > 60 BUN/Creatinine Ratio 28.4 H Glucose 130 H Lactate 1.2 Calcium 9.5 Magnesium Total Bilirubin 0.7 AST 21 ALT 27 Alkaline Phosphatase 104 Total Protein 6.2 L Albumin 3.3 L Globulin 2.9 Albumin/Globulin Ratio 1.1 Lipase 318 H D Procalcitonin 0.200 Urine RBC None seen Urine WBC 1-5/hpf Ur Squamous Epith Cells 5-10 /hpf H Urine Bacteria Few (2-10) H Ur Culture Indicated? Specimen cultured Vol Urine Centrifuged 10ml (spun) 01/14/24 08:20 WBC RBC Hgb Hct MCV MCH MCHC RDW Plt Count Neut % (Auto) Lymph % (Auto) [place] % (Auto) Eos % (Auto) Baso % (Auto) Neut # (Auto) Lymph # (Auto) [place] # (Auto) Eos # (Auto) Baso # (Auto) PT INR APTT Sodium 133 L Potassium 3.9 Chloride 105 Carbon Dioxide 21 L BUN 21 H Creatinine 0.81 Estimated GFR > 60 BUN/Creatinine Ratio 25.9 H Glucose 131 H Lactate Calcium 8.7 Magnesium 1.8 Total Bilirubin 0.6 AST 17 ALT 19 Alkaline Phosphatase 105 Total Protein 5.3 L Albumin 2.7 L Globulin 2.6 Albumin/Globulin Ratio 1.0 Lipase Procalcitonin Urine RBC Urine WBC Ur Squamous Epith Cells Urine Bacteria Ur Culture Indicated? Vol Urine Centrifuged [facility] Social History household members: children Smoking Status: Former smoker alcohol intake: never eating out: 1-3 times/week Type(s) of exercise: none Assessment & Plan Assessment & Plan narrative: 1. Possible infected Gallstone pancreatitis, present on admission and active. 2. Dm 2, insulin-dependent. Present on admission and active. 3. Hypertension, present on admission and active. 4. HLD, present on admission and active. 5. Morbid obesity with BMI 42, present on admission and active. 6. Possible acute cystitis Plan: -given improvement in labs, and patient is thirsty will try advancing to clear liquids today. Advance diet as tolerated after. -at this time not entirely clear if infection coming from pancreas, urine, or gallbladder. All will be covered by zosyn, so will continue this for now -urine cultures with some GNB, follow up final results. -follow up blood cultures -consider repeat RUQ US depending on tolerance of diet. -discussed with surgeon sap business objects consultant today, not recommended for cholecystectomy at this time, given pancreatic inflammation and higher rates of CBD injuries per surgeon. Admitted inpatient status, anticipate 2 midnight hospital stay. Full resuscitation. Time-Based Coding :: [TOTAL MINUTES] spent with patient and on the chart (including review of chart, obtaining history, exam, reviewing outside data, placing orders, documenting exam and treatment plan, and counseling patient) on [DATE]. Quality VTE Deep Vein Thrombosis/Pulmonary Embolism Present on Admission: No
[2024-01-14] MEDS: SODIUM CHLORIDE 0.9% 1,000 ML 100 ML IV (17:12)
[2024-01-14] MEDS: BUSPIRONE 5 MG TABLET 22.5 MG PO (20:26)
[2024-01-15] VITALS (9 sets, daily range): BP systolic 124–137; BP diastolic 59–71; PULSE 68–82; RESP 16–22; TEMP 36.9–38.1; O2SAT 94–95
[2024-01-15] MEDS: SODIUM CHLORIDE 0.9% 1,000 ML 100 ML IV ×2 (03:12→13:39)
[2024-01-15] MEDS: OXYCODONE IR 5 MG TABLET PO ×4 (04:20→17:51)
[2024-01-15] MEDS: ACETAMINOPHEN 325 MG TABLET 650 MG PO ×4 (04:20→21:36)
[2024-01-15] MEDS: PIPERACILLIN/TAZO 3.375 GM in SODIUM CHLORIDE 0.9% 100 ML IV ×3 (04:22→21:38)
[2024-01-15] MEDS: LEVOTHYROXINE 125 MCG TABLET PO (06:37)
[2024-01-15] MEDS: PANTOPRAZOLE DR 20 MG TABLET PO (06:37)
--- NOTE | 2024-01-15 07:54 | PM.PN.1 ---
Subjective Subjective Interval history: She is quite reticent today. She says that she feels the same as yesterday. Her main concern is her 47-year-old son with cerebral palsy who she cares for. Apparently someone with autism is staying with him now which also worries her. She says that it really hurts to move. She still feels very distended. She is frustrated that she is not considered a safe risk for gallbladder surgery yet. The sodium is 133 with a glucose of 131 and normal liver function tests. Sometime after the above note was written several family members came in and further discussions proceeded with Dr. Hutchinson coming in to see her, reviewing her CT scan and deciding on gallbladder surgery tomorrow. The white blood count had come down to 12.1 and the lipase had dropped to 303. The hemoglobin has also dropped to 9.2. The family focus remains on the adult son she cares for who has cerebral palsy and who is quite disturbed that she is not at home. This was discussed and comments that were intended to be refocusing the discussion on the pancreatitis were interpreted as being disrespectful and dismissive of her concerns for her son. This was additionally discussed with her other son and I apologized to her for the statements made in the previous discussion. There were several different versions of that discussion. My recollection did not match theirs but the apology stands. Exam Vital Signs (past 8 hours): Oxygen Delivery Method Room Air Oxygen Flow Rate 0 Narrative Exam Narrative: Alert and oriented x3. Moderate distress from abdominal pain. Very reticent. Very internally distracted. Heart is regular rate and rhythm without murmur. Lungs are clear to auscultation bilaterally. Abdomen is obese, soft, somewhat distended. There is diffuse tenderness present. There is no ankle edema. Objective Labs 01/15/24 12:55 01/15/24 12:55 Labs: Laboratory Results - last 24 hr 01/14/24 08:20 Sodium 133 L Potassium 3.9 Chloride 105 Carbon Dioxide 21 L BUN 21 H Creatinine 0.81 Estimated GFR > 60 BUN/Creatinine Ratio 25.9 H Glucose 131 H Calcium 8.7 Magnesium 1.8 Total Bilirubin 0.6 AST 17 ALT 19 Alkaline Phosphatase 105 Total Protein 5.3 L Albumin 2.7 L Globulin 2.6 Albumin/Globulin Ratio 1.0 [facility] Social History household members: children Smoking Status: Former smoker alcohol intake: never eating out: 1-3 times/week Type(s) of exercise: none Assessment & Plan Assessment & Plan narrative: 1. Possible Gallstone pancreatitis, present on admission and active. 2. Dm 2, insulin-dependent. Present on admission and active. 3. Hypertension, present on admission and active. 4. HLD, present on admission and active. 5. Morbid obesity with BMI 42, present on admission and active. 6. Ecoli cystitis 7. Anxiety Plan: -Continue clear liquids -Continue Zosyn for E.coli UTI/Pancreatitis -follow up blood cultures -discussed with surgeon lead injection mold technician, 01/15/24. Surgery will be scheduled for 01/16/24. Time-Based Coding :: [TOTAL MINUTES] spent with patient and on the chart (including review of chart, obtaining history, exam, reviewing outside data, placing orders, documenting exam and treatment plan, and counseling patient) on [DATE]. Quality VTE Deep Vein Thrombosis/Pulmonary Embolism Present on Admission: No
[2024-01-15] MEDS: ISOSORBIDE MONONITRATE ER 30 MG TABLET 60 MG PO (08:31)
[2024-01-15] MEDS: METOPROLOL IR 25 MG TABLET PO ×2 (08:31→21:49)
[2024-01-15] MEDS: FENOFIBRATE, MICRONIZED 67 MG CAPSULE PO (08:32)
[2024-01-15] MEDS: ASPIRIN EC 81 MG TABLET PO (08:32)
[2024-01-15] MEDS: INSULIN GLARGINE 100 UNIT/ML 3ML PEN 35 UNIT SUBCUT (08:32)
[2024-01-15] MEDS: ALBUTEROL 2.5 MG/3 ML NEB (ADULT) INH ×2 (08:56→16:31)
[2024-01-15] MEDS: BUDESONIDE 0.5 MG/2 ML NEB INH ×2 (08:56→16:31)
[2024-01-15 10:18] LABS: Alanine Aminotransferase 17 IU/L (<35); Albumin 2.6 g/dL (3.5-5.0); Alkaline Phosphatase 132 U/L (38-126); Aspartate Aminotransferase 18 IU/L (14-36); BUN Creatinine Ratio 23.8 (6-22); Bilirubin Total 0.6 mg/dL (0.2-1.3); Blood Urea Nitrogen 19 mg/dL (7-17); Calcium 8.6 mg/dL (8.4-10.2); Carbon Dioxide 21 mmol/L (22-32); Chloride 102 mmol/L (98-107); Estimated Glomerular Filt Rate > 60 mL/min (>60); Globulin 2.6 g/dL (1.7-4.1); Glucose 118 mg/dL (70-100); HEMOLYSIS < 15 (0-50); Magnesium 1.7 mg/dL (1.6-2.3); Potassium 3.4 mmol/L (3.4-5.1); Sodium 131 mmol/L (137-145); Total Protein 5.2 g/dL (6.3-8.2)
[2024-01-15 13:01] LABS: Add Manual Diff / Slide Review NO; Basophils Absolute Auto 100 /uL (0-100); Basophils Percent Auto 0.5 % (0-2); Eosinophils Absolute Auto 400 /uL (0-450); Eosinophils Percent Auto 3.3 % (2-4); Hemoglobin 9.2 g/dL (12.0-16.0); Lymphocytes Absolute Auto 1000 /uL (1100-4500); Lymphocytes Percent Auto 8.2 % (25-40); Mean Corpuscular HGB Conc 31.8 % (30-36); Mean Corpuscular Hemoglobin 23.2 PG (26-34); Mean Corpuscular Volume 72.9 fL (80-100); Monocytes Absolute Auto 800 /uL (0-900); Monocytes Percent Auto 6.6 % (3-14); Neutrophils Absolute Auto 9900 /uL (1500-7000); Neutrophils Percent Auto 81.4 % (50-75); Platelet Count 310 X10^3/uL (150-400); Red Blood Cell Count 3.99 X10^6/uL (4.0-5.2); Red Cell Distribution Width 15.7 % (11.6-14.8); White Blood Cell Count 12.1 X10^3/uL (4.5-11.0)
[2024-01-15 13:27] LABS: Lipase 303 U/L (23-300)
[2024-01-15 13:29] LABS: Alanine Aminotransferase 16 IU/L (<35); Albumin 2.7 g/dL (3.5-5.0); Alkaline Phosphatase 133 U/L (38-126); Aspartate Aminotransferase 21 IU/L (14-36); BUN Creatinine Ratio 23.8 (6-22); Bilirubin Total 0.4 mg/dL (0.2-1.3); Blood Urea Nitrogen 19 mg/dL (7-17); Calcium 8.8 mg/dL (8.4-10.2); Carbon Dioxide 23 mmol/L (22-32); Chloride 100 mmol/L (98-107); Estimated Glomerular Filt Rate > 60 mL/min (>60); Globulin 2.6 g/dL (1.7-4.1); Glucose 114 mg/dL (70-100); HEMOLYSIS < 15 (0-50); Potassium 3.5 mmol/L (3.4-5.1); Sodium 131 mmol/L (137-145); Total Protein 5.3 g/dL (6.3-8.2)
--- NOTE | 2024-01-15 13:36 | P.CONS_ITS ---
History of Present Illness Consult details Date Patient Seen: 01/15/24 Time Patient Seen: 13:36 Chief complaint: returning patient abd px, fever Narrative: Deanna is a 58-year-old woman who has been dealing with upper abdominal pain for about a year now. She was admitted to the hospital 5 days ago and was found to have moderate gallstone pancreatitis. She was discharged home on Wednesday with plans to follow up for an outpatient laparoscopic cholecystectomy. She returned to the emergency room again on , 2 days ago with persistent pain. Her white blood cell count and lipase have been trending down but a repeat CT still showed significant inflammation around the pancreas. She does not feel that she has improved clinically. She has minimal appetite and persistent upper abdominal pain. Her other medical problems include morbid obesity, type 2 diabetes, COPD and hypertension. She has no prior abdominal surgical history. Meds Home Medications and Allergies Home Medications Medication Instructions Recorded Confirmed Type ferrous fumarate 324 mg (106 mg 324 mg PO DAILY ##0 12/31/15 01/13/24 History iron) tablet levothyroxine 125 mcg tablet 125 mcg PO DAILY #0 tabs 12/31/15 01/13/24 History (Synthroid) omeprazole 20 mg-sodium 1 cap PO DAILY ##0 12/31/15 01/13/24 History bicarbonate 1.1 gram capsule (Zegerid OTC) lutein 10 mg tablet 25 mg PO DAILY oral ##0 02/12/16 01/13/24 History albuterol sulfate 90 mcg/actuation 1 puff inhalation Q4-6H PRN 05/30/18 01/13/24 History aerosol inhaler (Ventolin HFA) Shortness Of Breath metoprolol tartrate 25 mg tablet 25 mg PO BID 05/30/18 01/13/24 History aspirin 81 mg tablet,delayed 81 mg PO DAILY 01/10/24 01/13/24 History release buspirone 15 mg tablet 22.5 mg PO ONCE PM 01/10/24 01/13/24 History dulaglutide 4.5 mg/0.5 mL 4.5 mg SUBCUT WEEKLY 01/10/24 01/13/24 History subcutaneous pen injector (Trulicity) empagliflozin 10 mg tablet 10 mg PO DAILY 01/10/24 01/13/24 History (Jardiance) fenofibrate micronized 43 mg 43 mg PO DAILY 01/10/24 01/13/24 History capsule insulin glargine U-300 conc 300 70 unit SUBCUT DAILY 01/10/24 01/13/24 History unit/mL (1.5 mL) subcutaneous pen (Rameshurex SoloStar U-300 Insulin) ipratropium bromide 17 2 puff inhalation 4XD PRN wheezing 01/10/24 01/13/24 History mcg/actuation HFA aerosol inhaler (Atrovent HFA) isosorbide mononitrate 60 mg 60 mg PO DAILY 01/10/24 01/13/24 History tablet,extended release 24 hr fluticasone propionate 115 2 puff inhalation BID 01/11/24 01/13/24 History mcg-salmeterol 21 mcg/actuation HFA inhaler oxycodone 5 mg tablet 5 mg PO Q4HR PRN Pain, Moderate 01/12/24 01/13/24 Rx (4-6) #15 tabs Allergies Allergy/AdvReac Type Severity Reaction Status Date / Time adhesive tape [ADHESIVE TAPE] Allergy Unknown BLISTERS Verified 01/10/24 09:31 AND PEELING simvastatin [SIMVASTATIN] AdvReac Unknown MUSCLE Verified 01/10/24 09:31 CRAMPS Exam Vital Signs (past 8 hours): - 01/15/24 08:00 01/15/24 09:00 Temperature 98.4 F Pulse Rate 69 68 Respiratory Rate 18 16 Blood Pressure 137/71 Pulse Oximetry 95 94 Oxygen Delivery Method Room Air Oxygen Delivery Method Room Air Oxygen Flow Rate 0 Narrative Exam Narrative: Morbidly obese Abdomen is tender to palpation at the right upper quadrant and epigastrium Objective Labs 01/15/24 12:55 01/15/24 12:55 Labs: Laboratory Results - last 24 hr 01/15/24 01/15/24 09:47 12:55 WBC 12.1 H RBC 3.99 L Hgb 9.2 L Hct 29.0 L MCV 72.9 L MCH 23.2 L MCHC 31.8 RDW 15.7 H Plt Count 310 Neut % (Auto) 81.4 H Lymph % (Auto) 8.2 L [place] % (Auto) 6.6 Eos % (Auto) 3.3 Baso % (Auto) 0.5 Neut # (Auto) 9900 H Lymph # (Auto) 1000 L [place] # (Auto) 800 Eos # (Auto) 400 Baso # (Auto) 100 Sodium 131 L 131 L Potassium 3.4 3.5 Chloride 102 100 Carbon Dioxide 21 L 23 BUN 19 H 19 H Creatinine 0.80 0.80 Estimated GFR > 60 > 60 BUN/Creatinine Ratio 23.8 H 23.8 H Glucose 118 H 114 H Calcium 8.6 8.8 Magnesium 1.7 Total Bilirubin 0.6 0.4 AST 18 21 ALT 17 16 Alkaline Phosphatase 132 H 133 H Total Protein 5.2 L 5.3 L Albumin 2.6 L 2.7 L Globulin 2.6 2.6 Albumin/Globulin Ratio 1.0 1.0 Lipase 303 H PFSH Social History household members: children Tobacco & Substance Use Smoking Status: Former smoker alcohol intake: never Diet and Exercise eating out: 1-3 times/week Type(s) of exercise: none Assessment & Plan Assessment and plan (1) Gallstone pancreatitis: Status: Acute Plan Plan for laparoscopic cholecystectomy with intraoperative cholangiogram tomorrow as long as she does not develop any signs of severe pancreatitis. Time-Based Coding :: [TOTAL MINUTES] spent with patient and on the chart (including review of chart, obtaining history, exam, reviewing outside data, placing orders, documenting exam and treatment plan, and counseling patient) on [DATE].
--- NOTE | 2024-01-15 14:26 | CM.DPC ---
DCP Cont: Per Surgeon Consult, plan is for lap michelle tomorrow Sun 01/15 as pt has not improved and imaging shows increased inflammation. SW met bedside with pt and her mom Daisy and they confirm they are appreciative to have surgery happening now and pt confirms that her mom and sister live within a mile of her and can assist and provide transport as needed and her stress has been her 37 yo disabled needs son at home but currently his Respite CG is staying with him and pt feels more at ease. They do not anticipate any d/c needs at this time and preference is home via family POV when medically stable. MALA Leblanc
[2024-01-15] MEDS: BUSPIRONE 5 MG TABLET 22.5 MG PO (21:37)
[2024-01-16] VITALS (16 sets, daily range): BP systolic 133–173; BP diastolic 64–89; PULSE 59–77; RESP 13–20; TEMP 36.1–37.4; O2SAT 93–99; BMI 45.2
--- NOTE | 2024-01-16 | PATH_ITS ---
[facility] Accession Number: [id number] No. of containers..01 Tissue . 01 Material submitted: . gallbladder - GALLBLADDER . 01 Diagnosis: Gallbladder, cholecystectomy: Benign gallbladder with cholelithiasis with mild chronic cholecystitis, and focal cholesterolosis. Benign one lymph node identified. Negative for dysplasia or malignancy. TXN 01/20/2024 1122 Local . 01 Electronically signed: . Tawfeq MD Melanie, Pathologist NPI- [id number] . 01 Gross description: . Received in formalin with two patient identifiers and gallbladder, is an intact gallbladder, 8.2 x 4.0 x 2.4 cm, with an unremarkable external surface. The cystic duct margin is inked blue, and a mark lymph node candidate is identified 0.4 cm in greatest dimension. The lumen contains multiple yellow faceted calculi up to 0.5 cm in greatest dimension admixed with green mucoid bile. The mucosa is green and velvety with numerous yellow areas of discoloration, and no polyps or lesions identified. The mccloud average 0.4 cm thick. International Sourcing Manager sections to include the cystic duct margin, intact lymph node candidate, and full thickness sections are submitted in A1. ([id number]) /MRV 01/19/2024 1820 Local . 01 Pathologist provided ICD-10: K80.20 . 01 CPT . 328279 Specimen Comment: A courtesy copy of this report has been sent to [phone] Performed at: [address] [address], [place], [place] [id number] MD Yemi Arriaga MD Phone: [phone]
--- NOTE | 2024-01-16 | DI.RAD.S_ITS ---
PROCEDURE: XR CHOLANGIOGRAM OPERATIVE INDICATIONS: OR COMPARISON: None. FINDINGS: Biliary ducts: The surgeon injected contrast into the biliary ducts after cannulation of the cystic duct stump. Visualized intra- and extrahepatic bile ducts are normal in caliber, without strictures. No intraluminal filling defects to suggest retained ductal stones or sludge. No evidence for iatrogenic ductal injury. Duodenum: Contrast flows promptly through the sphincter of Oddi into the duodenum, which appears normal in caliber. IMPRESSION: Intraoperative fluoroscopic images demonstrate no filling defect to suggest retained ductal stones or sludge. Please see operative report for details. Dictated by: Iveth Hameed M.D. on 01/16/2024 at 12:27 Approved by: Iveth Hameed M.D. on 01/16/2024 at 12:28
[2024-01-16] MEDS: SODIUM CHLORIDE 0.9% 1,000 ML 100 ML IV (00:07)
[2024-01-16] MEDS: OXYCODONE IR 5 MG TABLET PO (01:28)
[2024-01-16 04:51] LABS: Add Manual Diff / Slide Review NO; Basophils Absolute Auto 100 /uL (0-100); Basophils Percent Auto 0.5 % (0-2); Eosinophils Absolute Auto 400 /uL (0-450); Eosinophils Percent Auto 3.2 % (2-4); Hematocrit 26.8 % (36-46); Hemoglobin 8.7 g/dL (12.0-16.0); Lymphocytes Absolute Auto 1000 /uL (1100-4500); Lymphocytes Percent Auto 8.4 % (25-40); Mean Corpuscular HGB Conc 32.4 % (30-36); Mean Corpuscular Hemoglobin 23.3 PG (26-34); Monocytes Absolute Auto 1000 /uL (0-900); Monocytes Percent Auto 8.3 % (3-14); Neutrophils Absolute Auto 9400 /uL (1500-7000); Neutrophils Percent Auto 79.6 % (50-75); Platelet Count 306 X10^3/uL (150-400); Red Blood Cell Count 3.72 X10^6/uL (4.0-5.2); Red Cell Distribution Width 15.8 % (11.6-14.8); White Blood Cell Count 11.8 X10^3/uL (4.5-11.0)
[2024-01-16 05:00] LABS: Lipase 276 U/L (23-300)
[2024-01-16 05:02] LABS: Alanine Aminotransferase 15 IU/L (<35); Albumin 2.4 g/dL (3.5-5.0); Albumin Globulin Ratio 0.9 (1.0-2.8); Alkaline Phosphatase 133 U/L (38-126); Aspartate Aminotransferase 21 IU/L (14-36); BUN Creatinine Ratio 19.2 (6-22); Bilirubin Total 0.5 mg/dL (0.2-1.3); Blood Urea Nitrogen 14 mg/dL (7-17); Calcium 8.7 mg/dL (8.4-10.2); Carbon Dioxide 22 mmol/L (22-32); Chloride 102 mmol/L (98-107); Estimated Glomerular Filt Rate > 60 mL/min (>60); Globulin 2.7 g/dL (1.7-4.1); Glucose 106 mg/dL (70-100); HEMOLYSIS < 15 (0-50); Magnesium 1.7 mg/dL (1.6-2.3); Potassium 3.4 mmol/L (3.4-5.1); Sodium 130 mmol/L (137-145); Total Protein 5.1 g/dL (6.3-8.2)
[2024-01-16] MEDS: PIPERACILLIN/TAZO 3.375 GM in SODIUM CHLORIDE 0.9% 100 ML IV ×2 (05:30→18:26)
[2024-01-16] MEDS: BUDESONIDE 0.5 MG/2 ML NEB INH ×2 (07:53→19:48)
[2024-01-16] MEDS: ALBUTEROL 2.5 MG/3 ML NEB (ADULT) INH (07:55)
--- NOTE | 2024-01-16 08:15 | PM.PN.1 ---
Subjective Subjective Date Patient Seen: 01/16/24 Interval history: She is seen postoperatively and is doing well. She says she feels much better and is now able to swallow water without feeling abdominal pain spasms. Her mother and sister are very attentive. The lipase has dropped down to 276 and alk phos is 133. The liver enzymes are otherwise normal. The sodium is 130. The hemoglobin has dropped from 9.2 down to 8.7. The white blood count is 11.8. Her blood pressure is high at 151/64. Exam Vital Signs (past 8 hours): - 01/16/24 04:31 01/16/24 07:56 Temperature 97.7 F Pulse Rate 73 73 Respiratory Rate 20 16 Blood Pressure 151/64 H Pulse Oximetry 94 96 Oxygen Delivery Method Room Air Oxygen Flow Rate 0 Oxygen Delivery Method Room Air Oxygen Flow Rate 0 Narrative Exam Narrative: She is alert and oriented x3. No apparent distress. Heart is regular rate and rhythm without murmur. Lungs are clear to auscultation bilaterally Abdomen is not examined as she is immediately postop. Extremities have no ankle edema. Objective Labs 01/16/24 04:20 01/16/24 04:20 Labs: Laboratory Results - last 24 hr 01/15/24 01/15/24 01/16/24 09:47 12:55 04:20 WBC 12.1 H 11.8 H RBC 3.99 L 3.72 L Hgb 9.2 L 8.7 L Hct 29.0 L 26.8 L MCV 72.9 L 72.0 L MCH 23.2 L 23.3 L MCHC 31.8 32.4 RDW 15.7 H 15.8 H Plt Count 310 306 Neut % (Auto) 81.4 H 79.6 H Lymph % (Auto) 8.2 L 8.4 L [place] % (Auto) 6.6 8.3 Eos % (Auto) 3.3 3.2 Baso % (Auto) 0.5 0.5 Neut # (Auto) 9900 H 9400 H Lymph # (Auto) 1000 L 1000 L [place] # (Auto) 800 1000 H Eos # (Auto) 400 400 Baso # (Auto) 100 100 Sodium 131 L 131 L 130 L Potassium 3.4 3.5 3.4 Chloride 102 100 102 Carbon Dioxide 21 L 23 22 BUN 19 H 19 H 14 Creatinine 0.80 0.80 0.73 Estimated GFR > 60 > 60 > 60 BUN/Creatinine Ratio 23.8 H 23.8 H 19.2 Glucose 118 H 114 H 106 H Calcium 8.6 8.8 8.7 Magnesium 1.7 1.7 Total Bilirubin 0.6 0.4 0.5 AST 18 21 21 ALT 17 16 15 Alkaline Phosphatase 132 H 133 H 133 H Total Protein 5.2 L 5.3 L 5.1 L Albumin 2.6 L 2.7 L 2.4 L Globulin 2.6 2.6 2.7 Albumin/Globulin Ratio 1.0 1.0 0.9 L Lipase 303 H 276 PFSH Social History household members: children Smoking Status: Former smoker alcohol intake: never eating out: 1-3 times/week Type(s) of exercise: none Assessment & Plan Assessment & Plan narrative: 1. Gallstone pancreatitis, present on admission and active. 2. Dm 2, insulin-dependent. Present on admission and active. 3. Hypertension, present on admission and active. 4. HLD, present on admission and active. 5. Morbid obesity with BMI 42, present on admission and active. 6. Ecoli cystitis 7. Anxiety 8. Microcytic Anemia Plan: -Continue clear liquids -Continue Zosyn for E.coli UTI/Pancreatitis -BC no growth X 48 hours -Consider IV Iron infusion if HGB trend does not reverse -s/p Cholecystectomy with Dr. Hutchinson on 01/16/24. Time-Based Coding :: [TOTAL MINUTES] spent with patient and on the chart (including review of chart, obtaining history, exam, reviewing outside data, placing orders, documenting exam and treatment plan, and counseling patient) on [DATE]. Quality VTE Deep Vein Thrombosis/Pulmonary Embolism Present on Admission: No
[2024-01-16] MEDS: MORPHINE 4 MG/ML INJ IV (08:54)
[2024-01-16] MEDS: METOPROLOL IR 25 MG TABLET PO ×2 (08:54→21:14)
[2024-01-16] MEDS: POTASSIUM CHLORIDE 20 MEQ TAB 40 MEQ PO (08:54)
[2024-01-16] MEDS: MAGNESIUM CHLORIDE 64 MG TABLET 128 MG PO (08:54)
[2024-01-16] MEDS: ISOSORBIDE MONONITRATE ER 30 MG TABLET 60 MG PO (08:54)
[2024-01-16] MEDS: INSULIN GLARGINE 100 UNIT/ML 3ML PEN 35 UNIT SUBCUT (09:05)
[2024-01-16] MEDS: LACTATED RINGERS 1,000 ML 42 ML IV ×2 (10:13→11:35)
--- NOTE | 2024-01-16 10:25 | PM.PN.1 ---
Subjective Subjective Date Patient Seen: 01/16/24 Time Patient Seen: 10:25 Interval history: Labs normal today. She feels about the same as yesterday. Exam Vital Signs (past 8 hours): - 01/16/24 04:31 01/16/24 07:56 01/16/24 08:23 Temperature 97.7 F 98.1 F Pulse Rate 73 73 77 Respiratory Rate 20 16 19 Blood Pressure 151/64 H 151/75 H Pulse Oximetry 94 96 98 Oxygen Delivery Method Room Air Oxygen Flow Rate 0 0 01/16/24 10:14 Temperature 99 F Pulse Rate 73 Respiratory Rate 16 Blood Pressure 160/77 H Pulse Oximetry 94 Oxygen Delivery Method Room Air Oxygen Flow Rate Oxygen Delivery Method Room Air Oxygen Flow Rate 0 Const General: No acute distress Resp Effort & Inspection: normal respiratory effort Objective Labs 01/16/24 04:20 01/16/24 04:20 Labs: Laboratory Results - last 24 hr 01/15/24 01/15/24 01/16/24 09:47 12:55 04:20 WBC 12.1 H 11.8 H RBC 3.99 L 3.72 L Hgb 9.2 L 8.7 L Hct 29.0 L 26.8 L MCV 72.9 L 72.0 L MCH 23.2 L 23.3 L MCHC 31.8 32.4 RDW 15.7 H 15.8 H Plt Count 310 306 Neut % (Auto) 81.4 H 79.6 H Lymph % (Auto) 8.2 L 8.4 L [place] % (Auto) 6.6 8.3 Eos % (Auto) 3.3 3.2 Baso % (Auto) 0.5 0.5 Neut # (Auto) 9900 H 9400 H Lymph # (Auto) 1000 L 1000 L [place] # (Auto) 800 1000 H Eos # (Auto) 400 400 Baso # (Auto) 100 100 Sodium 131 L 131 L 130 L Potassium 3.4 3.5 3.4 Chloride 102 100 102 Carbon Dioxide 21 L 23 22 BUN 19 H 19 H 14 Creatinine 0.80 0.80 0.73 Estimated GFR > 60 > 60 > 60 BUN/Creatinine Ratio 23.8 H 23.8 H 19.2 Glucose 118 H 114 H 106 H Calcium 8.6 8.8 8.7 Magnesium 1.7 1.7 Total Bilirubin 0.6 0.4 0.5 AST 18 21 21 ALT 17 16 15 Alkaline Phosphatase 132 H 133 H 133 H Total Protein 5.2 L 5.3 L 5.1 L Albumin 2.6 L 2.7 L 2.4 L Globulin 2.6 2.6 2.7 Albumin/Globulin Ratio 1.0 1.0 0.9 L Lipase 303 H 276 PFSH Social History household members: children Smoking Status: Former smoker alcohol intake: never eating out: 1-3 times/week Type(s) of exercise: none Assessment & Plan Assessment and plan (1) Gallstone pancreatitis: Status: Acute Plan Proceed with laparoscopic cholecystectomy and intraoperative cholangiogram today. Time-Based Coding :: [TOTAL MINUTES] spent with patient and on the chart (including review of chart, obtaining history, exam, reviewing outside data, placing orders, documenting exam and treatment plan, and counseling patient) on [DATE]. Quality VTE Deep Vein Thrombosis/Pulmonary Embolism Present on Admission: No
--- NOTE | 2024-01-16 11:42 | SUR.OPER ---
Supine on padded OR bed, head on pillow, safety belt at thigh, left arm padded and tucked at side. Right arm secured on padded arm board <90 degrees abduction. Legs uncrossed. Padded footboard in place. Tape over blanket to secure lower legs.
[2024-01-16] MEDS: iopamidoL 30 ML VIAL INJ (11:48)
[2024-01-16] MEDS: BUPIVACAINE 0.5% (PF) 30 ML, EPINEPHrine 0.15 MG INJ (11:49)
--- NOTE | 2024-01-16 13:00 | P.OP_ITS ---
Operative Date/Time/Diagnoses Date of procedure: 01/16/24 Time of procedure: 13:00 Pre-op diagnosis: Gallstone pancreatitis Post-op diagnosis: same Procedure & Clinicians Procedure: Laparoscopic cholecystectomy Intraoperative cholangiogram Same procedure as scheduled: Yes Surgeon: Hevre Hutchinson Anesthesia Type: General Operative Notes Procedure in detail: The patient was on scheduled Zosyn. The patient was brought to the operating room, placed on the table in the supine position. General endotracheal anesthesia was induced. The abdomen was prepped and draped. A time-out was performed. We made a 1 cm supraumbilical incision. We dissected down to the anterior sheath using cautery. We grasped the fascia with a Sincere clamp to elevate the abdominal wall. We scored the fascia in the midline with cautery. We pierced the peritoneum with a Peon clamp. The Jeannette port was placed and the abdomen was insufflated to 15 mmHg. A 5 mm 30 degree laparoscopic was inserted. There was no evidence of any injury from the entry. Next, we placed 5 mm ports in the subxiphoid position and right upper quadrant at the midclavicular line and anterior axillary line. The patient was then positioned in reverse Trendelenburg and the table was tilted to the left. The gallbladder was grasped at the dome and retracted cephalad. There were some adhesions of mesenteric tissue to gallbladder which were carefully dissected with cautery to allow full retraction of the gallbladder. We then dissected the cystic structures with a combination of hook cautery and blunt dissection. We obtained a critical view. Next, a cholangiogram was performed using the 6 Croatian ureteral catheter. There was good flow of contrast into the duodenum and liver with no obvious filling defects. The cystic duct-common duct junction was well visualized. We then placed hemoclips on the cystic duct and artery and divided the cystic duct and artery sharply between the clips. The gallbladder was then dissected off the liver and placed in a specimen retrieval bag. We irrigated the right upper quadrant and all the aspirate returned clear. We then removed the 5 mm ports under direct vision we removed the Jeannette port. We then injected some local into the fascia and closed the fascia with 2 interrupted 0 Vicryl sutures. The skin incisions were closed with 4 Monocryl and Steri-Strips were applied. Band- Aids were applied over the Steri-Strips. EBL: 10 mL Specimen: Gallbladder and contents Post-operative Condition: stable Disposition: PACU
[2024-01-16] MEDS: ACETAMINOPHEN 325 MG TABLET 650 MG PO (13:24)
[2024-01-16] MEDS: HYDROMORPHONE 1 MG INJ IV (13:25)
[2024-01-16] MEDS: OXYCODONE/ACETAMINOPHEN 5/325 TABLET 1 TAB PO (13:25)
--- NOTE | 2024-01-16 15:15 | CM.DPNOTE ---
DCP Cont Reviewed chart. Patient discussed in multidisciplinary rounds. Patient scheduled for lap michelle today. Discharge home w/family anticipated w/close outpatient follow up. CM team following closely in case any discharge needs or concerns arise post operatively. SAIDA
[2024-01-16] MEDS: SODIUM CHLORIDE 0.9% 500 ML 21 ML IV (18:25)
[2024-01-17] MEDS: PIPERACILLIN/TAZO 3.375 GM in SODIUM CHLORIDE 0.9% 100 ML IV ×2 (02:12→10:56)
[2024-01-17 05:13] VITALS: BP 143/69; PULSE 68; RESP 18; TEMP 36; O2SAT 96
[2024-01-17] MEDS: LEVOTHYROXINE 125 MCG TABLET PO (06:19)
[2024-01-17] MEDS: PANTOPRAZOLE DR 20 MG TABLET PO (06:19)
[2024-01-17 07:42] VITALS: PULSE 61; RESP 18; O2SAT 96
[2024-01-17] MEDS: BUDESONIDE 0.5 MG/2 ML NEB INH (07:42)
[2024-01-17] MEDS: ISOSORBIDE MONONITRATE ER 30 MG TABLET 60 MG PO (08:14)
[2024-01-17] MEDS: ASPIRIN EC 81 MG TABLET PO (08:15)
[2024-01-17] MEDS: ACETAMINOPHEN 325 MG TABLET 650 MG PO (08:15)
[2024-01-17] MEDS: OXYCODONE IR 5 MG TABLET PO (08:15)
[2024-01-17] MEDS: METOPROLOL IR 25 MG TABLET PO (08:16)
[2024-01-17] MEDS: INSULIN LISPRO 100 UNIT/ML 3ML VIAL 20 UNIT SUBCUT (08:20)
[2024-01-17] MEDS: INSULIN GLARGINE 100 UNIT/ML 3ML PEN 35 UNIT SUBCUT (08:20)
[2024-01-17 08:32] VITALS: BP 165/90; PULSE 60; RESP 18; TEMP 36.4; O2SAT 95
--- NOTE | 2024-01-17 09:29 | PM.PN.1 ---
Subjective Subjective Date Patient Seen: 01/17/24 Time Patient Seen: 09:29 Interval history: Deanna feels much better today. Tolerating a diet. Exam Vital Signs (past 8 hours): - 01/17/24 05:13 01/17/24 07:42 01/17/24 08:32 Temperature 96.8 F L 97.6 F Pulse Rate 68 61 60 Respiratory Rate 18 18 18 Blood Pressure 143/69 H 165/90 H Pulse Oximetry 96 96 95 Oxygen Delivery Method Room Air Oxygen Flow Rate 0 0 0 Fraction of Inspired Oxygen 21 Fraction of Inspired Oxygen 21 SaO2/FiO2 Ratio 457 Oxygen Delivery Method Room Air Oxygen Flow Rate 0 Const General: No acute distress Objective Labs 01/16/24 04:20 01/16/24 04:20 PFSH Social History household members: children Smoking Status: Former smoker alcohol intake: never eating out: 1-3 times/week Type(s) of exercise: none Assessment & Plan Assessment and plan (1) Gallstone pancreatitis: Status: Acute Plan Doing well following laparoscopic cholecystectomy Tolerating a diet We discussed dietary recommendations Okay to discharge from a surgical standpoint. I will see her in 2-3 weeks for postop visit. Time-Based Coding :: [TOTAL MINUTES] spent with patient and on the chart (including review of chart, obtaining history, exam, reviewing outside data, placing orders, documenting exam and treatment plan, and counseling patient) on [DATE]. Quality VTE Deep Vein Thrombosis/Pulmonary Embolism Present on Admission: No
--- NOTE | 2024-01-17 11:45 | PM.DS.1 ---
History of Present Illness History of Present Illness Date Patient Seen: 01/17/24 Time Patient Seen: 11:45 Chief complaint: returning patient abd px, fever Narrative: 58 years old female with history of insulin-dependent diabetes, hypertension, hyperlipidemia, COPD, hypothyroidism, GERD presented to the ER with upper epigastric abdominal pain and intermittent fever up to 101. The patient was discharge yesterday admitted for acute pancreatitis. MRCP was done and there was no any evidence of gallstone. Her LFTs were consistent for choledocholithiasis which improved and she was treated conservatively with IV fluids, analgesics and NPO. She was seen by surgery and was recommended elective cholecystectomy after resolution of pancreatitis. The patient denies any nausea, vomiting, diarrhea, constipation, shortness of breath or cough. Abdominal CT scan shows acute interstitial pancreatitis with moderate changes and no hyperenhancement to suggest necrosis abscess or walled off necrosis. Laboratory shows WBC 15.5 from 17.5, glucose 130, lactate 1.2, LFTs normal, lipase 389 from 1600, UA was negative for UTI. She was given Tylenol, ceftriaxone 1 g IV, morphine and fluid bolus. Discharge Providers Provider Date of admission: 01/13/24 20:42 Discharge Date: 01/17/24 Primary care physician: Mindi Nunes PA-C Discharge provider: DO Al Bentley Hospital Course Discharge Diagnosis: 1. Gallstone pancreatitis with possible bacterial infection, present on admission and active. 2. Dm 2, insulin-dependent. Present on admission and active. 3. Hypertension, present on admission and active. 4. HLD, present on admission and active. 5. Morbid obesity with BMI 42, present on admission and active. 6. Ecoli cystitis 7. Anxiety 8. Microcytic Anemia Hospital Course: This is a 58 year old female admitted with recurrent abdominal pain after recent discharge for gallstone pancreatitis. She had a fever, with improved liver enzymes compared to her discharge, and still cannot determine if this was due to an acute cystitis or possible infected pancreatitis as urine cultures grew E. coli. She was started on ceftriaxone and flagyl for possible infected pancreatitis on admission. Surgery was consulted given ongoing symptoms, she was eventually taken for laparoscopic cholcystectomy. After surgery, the patient felt much improved, with only abdominal soreness around her incisions afterwards and she was able to tolerate a diet prior to discharge. She was discharged on 10 days of cefdinir and flagyl for possible infected pancreatitis as well as her acute cystitis. While seemingly unlikely this was infected pancreatitis, this cannot be definitively ruled out and discussed the risks and benefits with the patient and she was in agreement for more broad and extended antibiotic treatment of possible infected pancreatitis. No other medication changes were recommended on discharge. Time Spent with Patient Time spent: Greater than 30 minutes Exam Vital Signs (past 8 hours): - 01/17/24 05:13 01/17/24 07:42 01/17/24 08:32 Temperature 96.8 F L 97.6 F Pulse Rate 68 61 60 Respiratory Rate 18 18 18 Blood Pressure 143/69 H 165/90 H Pulse Oximetry 96 96 95 Oxygen Delivery Method Room Air Oxygen Flow Rate 0 0 0 Fraction of Inspired Oxygen 21 Fraction of Inspired Oxygen 21 SaO2/FiO2 Ratio 457 Oxygen Delivery Method Room Air Oxygen Flow Rate 0 Narrative Exam Narrative: NAD, alert and oriented. Fluent speech. Lungs are clear, normal rate and effort. Heart is regular, no murmur gallop or rub. Abdomen is soft, non distended. appropriately tender around incision sites. Extremities are free of edema. Objective Labs 01/16/24 04:20 01/16/24 04:20 PFS Social History household members: children Smoking Status: Former smoker alcohol intake: never eating out: 1-3 times/week Type(s) of exercise: none Discharge Plan Discharge Plan Patient Disposition: Home Provider Discharge Comment: You will receive a call from [facility] office within the next week to arrange for a follow up visit. Avoid large, fatty meals until follow up. Discharge orders & Medications Prescriptions: New hydrocodone-acetaminophen 5-325 mg tablet 1 tab PO Q8H PRN (Reason: pain) Qty: 10 0RF cefdinir 300 mg capsule 300 mg PO Q12H 10 Days Qty: 20 0RF metronidazole 500 mg tablet 500 mg PO Q8H 10 Days Qty: 30 0RF Continued ferrous fumarate 324 MG tablet 324 mg PO DAILY Qty: 0 levothyroxine [Synthroid] 125 MCG tablet 125 mcg PO DAILY Qty: 0 omeprazole-sodium bicarbonate [Zegerid OTC] 20 MG capsule 1 cap PO DAILY Qty: 0 lutein 10 MG tablet 25 mg PO DAILY Qty: 0 albuterol sulfate [Ventolin HFA] 90 mcg/actuation Hfa Aerosol Inhaler 1 puff INHALATION Q4-6H PRN (Reason: Shortness Of Breath) metoprolol tartrate 25 mg Tablet 25 mg PO BID Rx Instructions: (1.5) tab in am and 25 mg (1) tab at bedtime aspirin 81 mg tablet,delayed release (DR/EC) 81 mg PO DAILY isosorbide mononitrate 60 mg tablet extended release 24 hr 60 mg PO DAILY buspirone 15 mg tablet 22.5 mg PO ONCE PM fenofibrate micronized 43 mg capsule 43 mg PO DAILY Atrovent HFA 17 mcg/actuation HFA aerosol inhaler 2 puff INHALATION 4XD PRN (Reason: wheezing) Jardiance 10 mg tablet 10 mg PO DAILY insulin glargine U-300 conc [Toujeo SoloStar U-300 Insulin] 300 unit/mL (1.5 mL) insulin pen 70 unit SUBCUT DAILY Trulicity 4.5 mg/0.5 mL pen injector 4.5 mg SUBCUT WEEKLY fluticasone propion-salmeterol 115-21 mcg/actuation HFA aerosol inhaler 2 puff INHALATION BID oxycodone 5 mg Tablet 5 mg PO Q4HR PRN (Reason: Pain, Moderate (4-6)) Qty: 15 0RF insulin lispro [Humalog KwikPen Insulin] 100 unit/mL insulin pen 20 unit SUBCUT AC Patient Comments: INJECT 20 UNITS INTO THE SKIN 3 TIMES DAILY BEFORE MEALS. INJECT 20 UNITS BEFORE EACH MEAL PLUS SLIDING SCALE. USE UP TO 90 UNITS PER DAY Follow up/Referrals: Hever Hutchinson MD [Physician] - 2 Weeks Mindi Nunes PA-C [Primary Care Provider] - Diet/Activity/Treatments Diet: Diet as Tolerated and Low-fat Activity: As tolerated, no heavy lifting more than 10-15 lbs Skin/Wound/Dressing Care Report to your healthcare provider any signs of infection, such as:: chills, fever and increased pain Visit Report/Discharge Packet Instructions: DI for Prescription Opioid Use, DI for Laparoscopic Cholecystectomy Stand Alone Forms: Patient Portal/API, Stroke Signs & Symptoms Discharge Data Primary Care Provider: Mindi Nunes VTE Deep Vein Thrombosis/Pulmonary Embolism Present on Admission: No
[2024-01-17 12:29] VITALS: BP 158/59; PULSE 66; RESP 20; TEMP 36.4; O2SAT 99
--- NOTE | 2024-01-17 12:48 | PC.NURSE ---
VSS. Afebrile. Pain controlled with oral medications. Pt verbalized understanding of D/C instructions, when to and how to take all medications, when follow up with general surgery and when to return if needed. All questions answered at the time of discharge. Pt left with cellphone, funeral home director, extension chord, CPAP machine, glasses, shoes, and clothing.
--- NOTE | 2024-01-17 14:18 | CM.DPC ---
DCP Discharge Home Per MD, pt's pain managed and tolerating diet and medically stable to d/c home today with no identified barriers to discharge. Per RN, discharge instructions provided and pt's sister bedside to provide transport home and personal belongings taken with pt. No concerns noted. Plan: Patient to d/c home today via sister POV and outpt f/u and no further SW needs at this time. MALA Leblanc
== END 2024-01-17 12:45 | disposition home or self-care (01) | DRG 418 ==
LOC: ED 20:41 → AC 20:42
PROVIDERS: Emergency Medicine; Family Medicine; Surgery; Admitting Provider Internal Medicine; Emergency Provider Emergency Medicine; Family Provider Family Medicine; PCP Physician Assistant; Referring Provider Emergency Medicine; Visit Provider Internal Medicine
PROC: 0FT44ZZ Resection of Gallbladder, Percutaneous Endoscopic Approach (ICD-10-PCS; CPT 47562; principal; 2024-01-16 11:00)
DX: K85.10 Biliary acute pancreatitis without necrosis or infection (principal); N30.00 Acute cystitis without hematuria; Z68.41 Body mass index [BMI] 40.0-44.9, adult; E66.01 Morbid (severe) obesity due to excess calories; E11.9 Type 2 diabetes mellitus without complications; E78.5 Hyperlipidemia, unspecified; B96.20 Unspecified Escherichia coli [E. coli] as the cause of diseases classified elsewhere; F41.9 Anxiety disorder, unspecified; D50.9 Iron deficiency anemia, unspecified; E03.9 Hypothyroidism, unspecified; J44.9 Chronic obstructive pulmonary disease, unspecified; I10 Essential (primary) hypertension; K21.9 Gastro-esophageal reflux disease without esophagitis; Z79.4 Long term (current) use of insulin; Z79.84 Long term (current) use of oral hypoglycemic drugs; Z87.891 Personal history of nicotine dependence; Z79.85 Long-term (current) use of injectable non-insulin antidiabetic drugs
CPT/HCPCS: 36415; 71045; 74177; 74300; 80053; 81003; 81015; 82962; 83605; 83690; 83735; 84145; 85025; 85610; 85730; 87040; 87077; 87086; 87186; 93005; 94640; 94660; 96365; 96368; 96375; 99284; J0136; J0171; J0330; J0696; J1100; J1170; J1815; J1885; J2250; J2270; J2405; J2543; J2704; J3010; J7613; Q9967